=== PATIENT | male | born 1955 | race Caucasian/White ===

== ENCOUNTER 2021-11-28 10:56 | Outpatient (RCR) | payer OTHER | END 2021-12-02 | disposition home or self-care (01) | LOC: ONC 10:56 | PROVIDERS: ATTEND Internal Medicine Hematology & Oncology | DX: C64.9 Malignant neoplasm of unspecified kidney, except renal pelvis (principal); C67.9 Malignant neoplasm of bladder, unspecified | CPT/HCPCS: 99204 ==

== ENCOUNTER 2021-12-26 18:29 | Inpatient (IN) | payer OTHER ==
[~2021-12-26] VITALS: Ht 177.8 cm; Wt 66.7 kg
--- NOTE | 2021-12-26 19:23 | ED Abdominal Pain ---
General Chief Complaint: Abdominal/GI Problems Stated Complaint: ABD PAIN,N/V Source of Information: Patient Exam Limitations: No Limitations (GUSTAVO FRANZ APRN) History of Present Illness Date Seen by Provider: Dec 26, 2021 Time Seen by Provider: 19:23 Initial Comments This is a 66 yo male with history of bladder cancer with metastasis to left kidney. Was previously treated with [facility] in [place] but moved to area to be closer to family. States he was diagnosed with bladder cancer in [id number] and had subsequent urinary diversion. Was found to have metastasis to his left kidney which resulted in left nephrectomy in June 2021. He is not currently on chemotherapy. Has established with [facility] oncology center. Has not yet established with primary care provider. Today he reports having decreased urine output, chills, and progressively worsening abdominal pain. Pain is in his suprapubic and right lower abdomen. States pain radiates around his back bilaterally. Has had no prior complications with diversion. Reports only other past medical history of HTN and currently takes Amlodipine 10mg daily. (GUSTAVO FRANZ APRN) Allergies and Home Medications Allergies Coded Allergies: No Known Drug Allergies (Unverified , 12/26/21) Patient Home Medication List Home Medication List Reviewed: Yes (GUSTAVO FRANZ APRN) Review of Systems Review of Systems Constitutional: chills, fever (subjective ) EENTM: No Symptoms Reported Respiratory: No Symptoms Reported Cardiovascular: No Symptoms Reported Gastrointestinal: See HPI Genitourinary: See HPI Musculoskeletal: no symptoms reported Skin: no symptoms reported Psychiatric/Neurological: No Symptoms Reported Endocrine: No Symptoms Reported Hematologic/Lymphatic: No Symptoms Reported (GUSTAVO FRANZ APRN) Physical Exam Vital Signs Vital Signs - First Documented 12/26/21 19:15 Temp 36.9 Pulse 88 Resp 14 B/P (MAP) 144/73 (96) Pulse Ox 100 O2 Delivery Room Air (LILLIE LEON DO) Vital Signs Capillary Refill : (GUSTAVO FRANZ APRN) Height/Weight/BMI Height: '" Weight: lbs. oz. kg; BMI Method: General Appearance: WD/WN, no apparent distress HEENT: PERRL/EOMI, normal ENT inspection, pharynx normal Neck: full range of motion, supple, normal inspection Respiratory: lungs clear, normal breath sounds, no respiratory distress, no accessory muscle use Cardiovascular: regular rate, rhythm, no murmur Gastrointestinal: normal bowel sounds, soft, tenderness Extremities: normal range of motion, normal inspection Back: normal inspection, no CVA tenderness Male: No testicular tenderness Neurologic/Psychiatric: no motor/sensory deficits, alert, normal mood/affect, oriented x 3 Skin: normal color, warm/dry (GUSTAVO FRANZ APRN) Focused Exam Lactate Level 12/26/21 21:09: Lactic Acid Level 1.12 (LILLIE LEON DO) Lactic Acid Level Laboratory Tests Test 12/26/21 21:09 Lactic Acid Level 1.12 MMOL/L (0.50-2.00) (LILLIE LEON DO) Progress/Results/Core Measures Results/Orders Lab Results Laboratory Tests Test 12/26/21 19:27 12/26/21 21:09 Range/Units White Blood Count 18.2 H 4.3-11.0 10^3/uL Red Blood Count 4.26 L 4.30-5.52 10^6/uL Hemoglobin 15.0 13.3-17.7 g/dL Hematocrit 43 40-54 % Mean Corpuscular Volume 100 H 80-99 fL Mean Corpuscular Hemoglobin 35 H 25-34 pg Mean Corpuscular Hemoglobin Concent 35 32-36 g/dL Red Cell Distribution Width 12.0 10.0-14.5 % Platelet Count 180 130-400 10^3/uL Mean Platelet Volume 9.4 9.0-12.2 fL Immature Granulocyte % (Auto) 0 % Neutrophils (%) (Auto) 86 H 42-75 % Lymphocytes (%) (Auto) 3 L 12-44 % Monocytes (%) (Auto) 10 0-12 % Eosinophils (%) (Auto) 0 0-10 % Basophils (%) (Auto) 0 0-10 % Neutrophils # (Auto) 15.6 H 1.8-7.8 10^3/uL Lymphocytes # (Auto) 0.6 L 1.0-4.0 10^3/uL Monocytes # (Auto) 1.9 H 0.0-1.0 10^3/uL Eosinophils # (Auto) 0.0 0.0-0.3 10^3/uL Basophils # (Auto) 0.0 0.0-0.1 10^3/uL Immature Granulocyte # (Auto) 0.1 0.0-0.1 10^3/uL Neutrophils % (Manual) 88 % Lymphocytes % (Manual) 3 % Monocytes % (Manual) 7 % Band Neutrophils 2 % Anisocytosis SLIGHT Sodium Level 136 135-145 MMOL/L Potassium Level 4.7 3.6-5.0 MMOL/L Chloride Level 104 98-107 MMOL/L Carbon Dioxide Level 17 L 21-32 MMOL/L Anion Gap 15 H 5-14 MMOL/L Blood Urea Nitrogen 22 H 7-18 MG/DL Creatinine 1.79 H 0.60-1.30 MG/DL Estimat Glomerular Filtration Rate 42 BUN/Creatinine Ratio 12 Glucose Level 131 H 70-105 MG/DL Calcium Level 9.5 8.5-10.1 MG/DL Corrected Calcium 9.3 8.5-10.1 MG/DL Total Bilirubin 0.8 0.1-1.0 MG/DL Aspartate Amino Transf (AST/SGOT) 23 5-34 U/L Alanine Aminotransferase (ALT/SGPT) 18 0-55 U/L Alkaline Phosphatase 88 40-136 U/L Total Protein 7.1 6.4-8.2 GM/DL Albumin 4.3 3.2-4.5 GM/DL Procalcitonin 0.25 H <0.10 NG/ML Lactic Acid Level 1.12 0.50-2.00 MMOL/L (LILLIE LEON DO) Medications Given in ED Current Medications Medications Dose Ordered Sig/Alistair Route Start Time Stop Time Status Last Admin Dose Admin Ceftriaxone Sodium/Dextrose 50 ml @ 100 mls/hr ONCE ONCE IV 12/26/21 21:00 12/26/21 21:29 DC 12/26/21 21:08 100 MLS/HR Fentanyl Citrate 50 mcg ONCE ONCE IVP 12/26/21 21:45 12/26/21 21:46 DC 12/26/21 22:04 50 MCG Piperacillin Sod/ Tazobactam Sod 4.5 gm/Sodium Chloride 100 ml @ 200 mls/hr ONCE ONCE IV 12/26/21 21:15 12/26/21 21:44 DC 12/26/21 22:04 200 MLS/HR Sodium Chloride 1,000 ml @ 999 mls/hr ONCE ONCE IV 12/26/21 20:45 12/26/21 21:45 DC 12/26/21 21:08 999 MLS/HR (LILLIE LEON DO) Vital Signs/I&O 12/26/21 19:15 Temp 36.9 Pulse 88 Resp 14 B/P (MAP) 144/73 (96) Pulse Ox 100 O2 Delivery Room Air (LILLIE LEON DO) Progress Progress Note : Progress Note Upon arrival VSS. Labs show elevated WBC-18, BUN 22, Creat-1.7, no baseline labs available. Lactic within normal limits. Procalcitonin-0.25. Imaging of abdomen shows s/p left nephrectomy, solitary right nephrectomy along with cystectomy and right lower quadrant ileal conduit. There is at least moderate severity obstruction of the right kidney with moderate perinephric and ureteric stranding, concerning for superimposed infectious process. Etiology of the obstruction is indeterminate. Labs and imaging reviewed with Dr. Hess. Patient had received Rocephin 1gm IV in ED. Recommended adding Zosyn 4.5GM IV and admit for IVF and antibiotics. Pain improved with Fentanyl 50mcg IVP. Plan of care reviewed with patient and daughter. They are agreeable with plan. Patient changed urostomy bag to collect urine sample. He was given 1 liter NS bolus to obtain UA, however has yet to make urine. Family updated regarding concerns for no urine output. Requested consult/transfer to [facility]. Called medical scraper hand for transfer. Provided history, labs, and imaging results. CT clouded for review. triage returned call and declined transfer due to capacity. Informed hospitalist recommends continuing with conservative treatment (IVF, antibiotics) and to return call in AM if decline in renal function and poor output. Plan of care reviewed with family. They are agreeable with plan. VSS for admit to medical unit. (GUSTAVO FRANZ APRN) Diagnostic Imaging Diagonstic Imaging: CT Plain Films/CT/US/NM/MRI: abdomen Comments [facility]. [place], [place] NAME: ALISSONMELANIE P [facility] REC#: [id number] PT STATUS: REG ER : 1955 PHYSICIAN: GUSTAVO FRANZ [employer] [employer] ADMIT DATE: 12/26/21/ER Signed Date of Exam:08/24/22 CT ABDOMEN/PELVIS WO PROCEDURE: CT abdomen and pelvis without contrast. TECHNIQUE: Multiple contiguous axial images were obtained through the abdomen and pelvis without the use of intravenous contrast. Auto Exposure Controls were utilized during the CT exam to meet ALARA standards for radiation dose reduction. INDICATION: 66-year-old male, stomach cramping since earlier in the day. Pain. Some nausea. CORRELATION STUDY: None. FINDINGS: LOWER THORAX: Clear. LIVER: Unremarkable on unenhanced imaging. GALLBLADDER: Present and unremarkable. No bile duct dilatation. SPLEEN: Unremarkable. PANCREAS: Unremarkable. ADRENAL GLANDS: Not well visualized, may be slightly hypertrophied otherwise grossly unremarkable. KIDNEYS: Left nephrectomy, solitary right kidney. Right kidney is engorged with moderate amount of perinephric stranding. There is at least moderate severity hydronephrosis. The right ureter cannot be completely traced but terminates at a right lower quadrant ileal conduit which is somewhat distended. ABDOMINAL AORTA: Moderate aortoiliac wall calcification, nonaneurysmal. GASTROINTESTINAL TRACT: Stomach appears to be with diffuse gastric wall thickening. A few fluid and gas-filled loops of small bowel without definitive features to suggest obstruction. Colonic diverticulosis. No definitive obstruction or inflammation, however overall assessment of particularly the gastrointestinal tract is limited. URINARY BLADDER: Postoperative cystectomy with a right lower quadrant ileal conduit. REPRODUCTIVE: Prostate gland appears absent. OSSEOUS STRUCTURES: Moderate multilevel degenerative change, most severe with narrowing and sclerotic changes at L2-L3. OTHER: None. IMPRESSION: 1. Limitations of noncontrast imaging. 2. Post left nephrectomy, solitary right nephrectomy along with cystectomy and right lower quadrant ileal conduit. There is at least moderate severity obstruction of the right kidney with moderate perinephric and ureteric stranding, concerning for superimposed infectious process. Etiology of the obstruction is indeterminate. 3. Suggested abnormal gastric wall thickening. Component of gastritis is not excluded and suspected. Imaging of gastrointestinal tract is somewhat limited overall assessment without definitive evidence for obstruction. Dictated by: Dictated on workstation # [id number] Dict: 12/26/212033 Trans: 12/26/212237 [facility] [id number] Interpreted by: MORAIMA ALEMAN DO Electronically signed by: MORAIMA ALEMAN DO 12/26/212237 Reviewed: Reviewed by Me (GUSTAVO FRANZ APRN) Departure Communication (Admissions) Time/Spoke to Admitting Phy: 21:10 Dr. Hess (GUSTAVO FRANZ APRN) Impression Primary Impression: Acute pyelonephritis Additional Impressions: Complication of Ileal conduit Hydronephrosis of right kidney Disposition: ADMITTED INPATIENT Condition: Stable Admissions Decision to Admit Reason: Admit from ER (General) Decision to Admit/Date: Dec 26, 2021 Time/Decision to Admit Time: 21:33 (GUSTAVO FRANZ APRN) Departure-Patient Inst. Referrals: NO,LOCAL PHYSICIAN (PCP/Family) Primary Care Physician ATTENDING PHYSICIAN NOTE: I WAS PHYSICALLY PRESENT ER PHYSICIAN, BUT I WAS NOT INVOLVED IN ANY DECISION MAKING OR ANY CARE OF THIS PATIENT, AND I AM NOT COLLABORATING PHYSICIAN. (LILLIE LEON DO) GUSTAVO FRANZ APRN Dec 26, 2021 19:23 LILLIE LEON DO Dec 27, 2021 05:35
[2021-12-26 19:29] LABS: MEAN PLATELET VOLUME 9.4 fL (9.0-12.2)
[2021-12-26 19:31] LABS: BASOPHILS % (AUTO) 0 % (0-10); EOSINOPHILS % (AUTO) 0 % (0-10); HEMATOCRIT 43 % (40-54); LYMPHOCYTES # (AUTO) 0.6 10^3/uL (1.0-4.0); LYMPHOCYTES % (AUTO) 3 % (12-44); MEAN CORPUSCULAR HEMOGLOBIN 35 pg (25-34); MEAN CORPUSCULAR HGB CONC 35 g/dL (32-36); MEAN CORPUSCULAR VOLUME 100 fL (80-99); MONOCYTES # (AUTO) 1.9 10^3/uL (0.0-1.0); MONOCYTES % (AUTO) 10 % (0-12); NEUTROPHILS # (AUTO) 15.6 10^3/uL (1.8-7.8); NEUTROPHILS % (AUTO) 86 % (42-75); PLATELET COUNT 180 10^3/uL (130-400); WHITE BLOOD COUNT 18.2 10^3/uL (4.3-11.0)
[2021-12-26 19:50] LABS: ALBUMIN 4.3 GM/DL (3.2-4.5); POTASSIUM 4.7 MMOL/L (3.6-5.0)
[2021-12-26 19:51] LABS: BAND NEUTROPHILS 2 %; LYMPHOCYTES % (MANUAL) 3 %; MONOCYTES % (MANUAL) 7 %; NEUTROPHILS % (MANUAL) 88 %
[2021-12-26 19:52] LABS: ANISOCYTOSIS SLIGHT; CALCIUM 9.5 MG/DL (8.5-10.1)
[2021-12-26 19:53] LABS: TOTAL PROTEIN 7.1 GM/DL (6.4-8.2)
[2021-12-26 19:55] LABS: BILIRUBIN,TOTAL 0.8 MG/DL (0.1-1.0)
[2021-12-26 19:56] LABS: CREATININE SERUM 1.79 MG/DL (0.60-1.30)
--- NOTE | 2021-12-26 20:44 | Diagnostic Imaging Report ---
PROCEDURE: CT abdomen and pelvis without contrast. TECHNIQUE: Multiple contiguous axial images were obtained through the abdomen and pelvis without the use of intravenous contrast. Auto Exposure Controls were utilized during the CT exam to meet ALARA standards for radiation dose reduction. INDICATION: 66-year-old male, stomach cramping since earlier in the day. Pain. Some nausea. CORRELATION STUDY: None. FINDINGS: LOWER THORAX: Clear. LIVER: Unremarkable on unenhanced imaging. GALLBLADDER: Present and unremarkable. No bile duct dilatation. SPLEEN: Unremarkable. PANCREAS: Unremarkable. ADRENAL GLANDS: Not well visualized, may be slightly hypertrophied otherwise grossly unremarkable. KIDNEYS: Left nephrectomy, solitary right kidney. Right kidney is engorged with moderate amount of perinephric stranding. There is at least moderate severity hydronephrosis. The right ureter cannot be completely traced but terminates at a right lower quadrant ileal conduit which is somewhat distended. ABDOMINAL AORTA: Moderate aortoiliac wall calcification, nonaneurysmal. GASTROINTESTINAL TRACT: Stomach appears to be with diffuse gastric wall thickening. A few fluid and gas-filled loops of small bowel without definitive features to suggest obstruction. Colonic diverticulosis. No definitive obstruction or inflammation, however overall assessment of particularly the gastrointestinal tract is limited. URINARY BLADDER: Postoperative cystectomy with a right lower quadrant ileal conduit. REPRODUCTIVE: Prostate gland appears absent. OSSEOUS STRUCTURES: Moderate multilevel degenerative change, most severe with narrowing and sclerotic changes at L2-L3. OTHER: None. IMPRESSION: 1. Limitations of noncontrast imaging. 2. Post left nephrectomy, solitary right nephrectomy along with cystectomy and right lower quadrant ileal conduit. There is at least moderate severity obstruction of the right kidney with moderate perinephric and ureteric stranding, concerning for superimposed infectious process. Etiology of the obstruction is indeterminate. 3. Suggested abnormal gastric wall thickening. Component of gastritis is not excluded and suspected. Imaging of gastrointestinal tract is somewhat limited overall assessment without definitive evidence for obstruction. Dictated by: Dictated on workstation # [id number]
[2021-12-26] MEDS ORDERED: NS IV 1000 ML 1,000 ML IV ONE (20:45)
[2021-12-26] MEDS ORDERED: cefTRIAXone 1 GM PRE-MIX 50 ML IV ONE (21:00)
[2021-12-26] MEDS ORDERED: NS IV 1000 ML 1,000 ML ONE (21:07)
[2021-12-26] MEDS ORDERED: PIPERACILLIN SODIUM/TAZOBACTAM 4.5 GM in NS (IVPB) 100 ML IV ONE (21:15)
[2021-12-26] MEDS ORDERED: fentaNYL INJ 100 MCG/2 ML AMP IVP ONE ×3 (21:15→23:30)
[2021-12-26 23:44] VITALS: BP 138/75
[2021-12-27] MEDS ORDERED: NS IV 1000 ML 1,000 ML ONE (00:06)
[2021-12-27 00:21] VITALS: BP 144/73
[2021-12-27] MEDS: NS IV 1000 ML 1,000 ML IV SCH ×2 (00:27→14:48)
[2021-12-27] MEDS ORDERED: RT-ALBUTEROL SULF 2.5 MG/3 ML PRE-MIX VIAL INH PRN (00:30)
[2021-12-27] MEDS ORDERED: ACETAMINOPHEN 500 MG TAB (TYLENOL) PO PRN (00:30)
[2021-12-27] MEDS ORDERED: ONDANSETRON 4 MG/2 ML (SDV) Z0FRAN IV PRN (00:30)
[2021-12-27] MEDS: PIPERACILLIN SODIUM/TAZOBACTAM 4.5 GM in NS (IVPB) 100 ML IV SCH ×2 (03:42→10:57)
[2021-12-27] MEDS: fentaNYL INJ 100 MCG/2 ML AMP IV PRN ×5 (03:42→14:30)
[2021-12-27 04:11] VITALS: BP 126/74
[2021-12-27 06:06] LABS: BASOPHILS % (AUTO) 0 % (0-10); EOSINOPHILS % (AUTO) 0 % (0-10); HEMATOCRIT 39 % (40-54); HEMOGLOBIN 14.1 g/dL (13.3-17.7); LYMPHOCYTES # (AUTO) 0.9 10^3/uL (1.0-4.0); LYMPHOCYTES % (AUTO) 4 % (12-44); MEAN CORPUSCULAR HEMOGLOBIN 36 pg (25-34); MEAN CORPUSCULAR HGB CONC 36 g/dL (32-36); MEAN CORPUSCULAR VOLUME 99 fL (80-99); MEAN PLATELET VOLUME 9.9 fL (9.0-12.2); MONOCYTES # (AUTO) 1.5 10^3/uL (0.0-1.0); MONOCYTES % (AUTO) 7 % (0-12); NEUTROPHILS # (AUTO) 18.3 10^3/uL (1.8-7.8); NEUTROPHILS % (AUTO) 87 % (42-75); PLATELET COUNT 131 10^3/uL (130-400); WHITE BLOOD COUNT 20.9 10^3/uL (4.3-11.0)
[2021-12-27 06:20] LABS: CALCIUM 8.5 MG/DL (8.5-10.1)
[2021-12-27 06:25] LABS: CREATININE SERUM 2.59 MG/DL (0.60-1.30)
[2021-12-27 08:07] VITALS: BP 130/63
[2021-12-27] MEDS ORDERED: FAMOTIDINE 20 MG (PEPCID) TABLET PO SCH (09:00)
--- NOTE | 2021-12-27 09:07 | Short Stay Summary-Hospitalist ---
History of Present Illness HPI/Chief Complaint Patient is a 66-year-old male with past medical history of metastatic bladder cancer status post cystectomy and nephrectomy with urinary diversion who presented to the emergency department due to abdominal pain. He had his nephrectomy in June 2019 and was on chemotherapy until August but did not tolerate this so is currently not on any chemotherapy. He reports decreased urine output and fevers and chills. He was found to have a leukocytosis on work-up in the emergency room and imaging of his abdomen revealed moderate severity obstruction of the right kidney with perinephric stranding and hydronephrosis. They attempted transfer to but [facility] was at capacity so he was admitted here for IV antibiotics. I discussed his case with our urologist Dr. Solorio who recommends transfer for intervention. I have discussed this with patient and his daughters at bedside and will continue to attempt transfer today. Source: patient Date Seen 12/27/21 Time Seen by a Provider: 09:02 Attending Physician No,Local Physician PCP Admitting Physician: Matt Hess MD Attending Physician: Matt Hess MD Referring Physician Date of Admission Dec 26, 2021 at 22:18 Home Medications & Allergies Home Medications Reviewed patient Home Medication Reconciliation performed by pharmacy medication reconciliations health information systems technician and/or nursing. Patients Allergies have been reviewed. Allergies Allergies Coded Allergies No Known Drug Allergies (Unverified12/26/21) Past Pxoqeix-Koznoj-Zjpgwd Hx Patient Social History Tobacco Use?: Yes Tobacco type used: Cigarettes Smoking Status: Current Everyday Smoker Smokeless Tobacco Frequency: Never a User Use of E-Cig and/or Vaping dev: No Substance use?: No Alcohol Use?: Yes Alcohol type: Beer, Hard Liquor Alcohol Frequency: Couple times a week Pt feels they are or have been: No Immunizations Up To Date Second COVID19 Vaccination Be: UNKNOWN Tetanus Booster (TDap): Unknown Current Status Advance Directives: No Communicates: Verbally Primary Language: Israeli Preferred Spoken Language: Israeli Is interpretation needed?: No Sensory deficits: Hearing impairment Implanted or [employer] D: None Review of Systems Constitutional: chills, fever EENTM: no symptoms reported Respiratory: no symptoms reported Cardiovascular: no symptoms reported Gastrointestinal: abdominal pain Genitourinary: decreased output, hematuria Musculoskeletal: no symptoms reported Skin: no symptoms reported Psychiatric/Neurological: No Symptoms Reported Physical Exam Physical Exam Vital Signs Vital Signs - First Documented 12/26/21 12/27/21 19:15 00:21 Temp 36.9 Pulse 88 Resp 14 B/P (MAP) 144/73 (96) Pulse Ox 100 O2 Delivery Room Air FiO2 21 Capillary Refill : Less Than 3 Seconds Height, Weight, BMI Height: '" Weight: lbs. oz. kg; 21.09 BMI Method: General Appearance: No Apparent Distress, WD/WN, Thin HEENT: PERRL/EOMI, Moist Mucous Membranes Respiratory: Lungs Clear, No Accessory Muscle Use, No Respiratory Distress Cardiovascular: Regular Rate, Rhythm, No Murmur Gastrointestinal: Normal Bowel Sounds, Soft, Tenderness (upper left), Other (urostomy with scant output) Neurologic/Psychiatric: Alert, Oriented x3, Normal Mood/Affect Results Results/Procedures Labs Laboratory Tests 12/26/21 19:27 12/27/21 05:49 Patient resulted labs reviewed. Imaging: Reviewed Imaging Report Imaging [facility]. [place], [place] NAME: MELANIE [facility] REC#: [id number] PT STATUS: REG ER : 1955 PHYSICIAN: GUSTAVO FRANZ APRN ADMIT DATE: 12/26/21/ER Signed Date of Exam:12/26/21 CT ABDOMEN/PELVIS WO PROCEDURE: CT abdomen and pelvis without contrast. TECHNIQUE: Multiple contiguous axial images were obtained through the abdomen and pelvis without the use of intravenous contrast. Auto Exposure Controls were utilized during the CT exam to meet ALARA standards for radiation dose reduction. INDICATION: 66-year-old male, stomach cramping since earlier in the day. Pain. Some nausea. CORRELATION STUDY: None. FINDINGS: LOWER THORAX: Clear. LIVER: Unremarkable on unenhanced imaging. GALLBLADDER: Present and unremarkable. No bile duct dilatation. SPLEEN: Unremarkable. PANCREAS: Unremarkable. ADRENAL GLANDS: Not well visualized, may be slightly hypertrophied otherwise grossly unremarkable. KIDNEYS: Left nephrectomy, solitary right kidney. Right kidney is engorged with moderate amount of perinephric stranding. There is at least moderate severity hydronephrosis. The right ureter cannot be completely traced but terminates at a right lower quadrant ileal conduit which is somewhat distended. ABDOMINAL AORTA: Moderate aortoiliac wall calcification, nonaneurysmal. GASTROINTESTINAL TRACT: Stomach appears to be with diffuse gastric wall thickening. A few fluid and gas-filled loops of small bowel without definitive features to suggest obstruction. Colonic diverticulosis. No definitive obstruction or inflammation, however overall assessment of particularly the gastrointestinal tract is limited. URINARY BLADDER: Postoperative cystectomy with a right lower quadrant ileal conduit. REPRODUCTIVE: Prostate gland appears absent. OSSEOUS STRUCTURES: Moderate multilevel degenerative change, most severe with narrowing and sclerotic changes at L2-L3. OTHER: None. IMPRESSION: 1. Limitations of noncontrast imaging. 2. Post left nephrectomy, solitary right nephrectomy along with cystectomy and right lower quadrant ileal conduit. There is at least moderate severity obstruction of the right kidney with moderate perinephric and ureteric stranding, concerning for superimposed infectious process. Etiology of the obstruction is indeterminate. 3. Suggested abnormal gastric wall thickening. Component of gastritis is not excluded and suspected. Imaging of gastrointestinal tract is somewhat limited overall assessment without definitive evidence for obstruction. Dictated by: Dictated on workstation # [id number] Dict: 12/26/212033 Trans: 12/26/212237 [facility] [id number] Interpreted by: MORAIMA ALEMAN DO Electronically signed by: MORAIMA ALEMAN DO 12/26/212237 Short Stay Diagnosis Discharge Diagnosis-Short Stay Admission Diagnosis Sepsis Final Discharge Diagnosis Sepsis Conclusion Plan Patient was admitted with severe sepsis due to pyelonephritis complicated by ileal loop diversion with obstruction and previous nephrectomy and cystectomy. He has been treated with IV antibiotics. I have discussed his case with urology who recommends transfer for urological intervention or percutaneous nephrostomy. We do not have the ability here to perform procedures the patient needs and I momo ramos reached out to who is at capacity, [facility] who is at capacity, I am awaiting to hear back from [facility] in [place] along with [facility], [facility], and [facility] in [place]. He will be continued on IV antibiotics. I will await his cultures. At this time he has made little urine but he is not hyperkalemic nor is he going into pulmonary edema. He is stable on room air. We will continue to attempt transfer. Received call back from [facility] around 1230 and patient accepted in transfer by Dr. Hoffman. Diagnosis/Problems Diagnosis/Problems (1) Sepsis Qualifiers: (2) Severe sepsis (3) Hydronephrosis of right kidney Status: Acute (4) Acute pyelonephritis Status: Acute (5) Complication of Ileal conduit Status: Acute (6) Urinary tract infection, site not specified Status: Acute (7) Bladder cancer Qualifiers: Qualified Codes: C67.9 - Malignant neoplasm of bladder, unspecified (8) History of nephrectomy, left (9) Metastasis from bladder cancer FEI DAVENPORT MD Dec 27, 2021 09:07
--- NOTE | 2021-12-27 11:29 | CONSULTATION REPORT ---
DATE OF SERVICE: 12/27/2021 ATTENDING PHYSICIAN: Dr. Hinojosa. SUMMARY: After reviewing the patient's records, interviewing him and examining him, this is a 66-year-old white man known to me long time ago when I did his vasectomy. He moved to [place] around 2017. He was found to have cancer of the bladder, underwent a radical cystectomy with ileal loop conduit. Later on, he was found to have metastatic disease into the left kidney and underwent a nephrectomy. He was admitted through the emergency room with a question pyelonephritis, ureteral obstruction, acute renal failure with anuria, attempt to transfer the patient to a tertiary hospital, which was the most appropriate to do was decline by [facility] because of capacity. He was admitted here and started on antibiotic and IV fluid. He has not put much through the conduit. I reviewed his CT, it is hard to tell the distal part of the ureter is obstructed or no, especially entering the loop for possible stricturing and the loop seems to be kind of little distended, but the bag is empty and there is some stranding in the kidney, but I do not think the infections causing obstruction, I believe the obstruction is causing the infection. We have to determine if it is a distal obstruction or proximal obstruction. IMPRESSION: Right ureteral obstruction with a single kidney with history of cancer of the bladder post-loop and diversion with metastatic disease to the left kidney, post-nephrectomy. PLAN: Ideally, the patient should be transferred to a tertiary center to deal with the issue and possibility of trying to put a stent through the loop, which we are unable to do here. The second option will be to at least rule out distal obstruction by having the nurse to put a catheter in through the stoma and see if there is no blockage and how much he gets, third option is to do a loopogram which possibly can be done here and see if there is reflux into the ureter or no unless the patient had an antireflux procedure at the time of conduit surgery and the last option would be to put a percutaneous nephrostomy again this is not done in our institution, but can be done in one of the hospital in [place] or transfer the patient to [facility] or [facility]. [facility] again declined the transfer secondary to capacity. All this was fully explained to the patient and two of his daughters and discussed with Dr. Hinojosa. CC: Dr. Ashish - requested, unable to deliver. Job ID: [id number] DocumentID: [id number] Dictated Date: 12/27/2021 09:57:55 Leadlighter Date: 12/27/2021 11:28:17 Dictated By: JEREL CARLIN MD
[2021-12-27 11:58] VITALS: BP 136/66
[2021-12-27] MEDS ORDERED: AMLO-251 PO (12:18)
[2021-12-27] MEDS ORDERED: MULT-1136 PO (12:18)
[2021-12-27 16:00] VITALS: BP 136/66
[2021-12-27] MEDS ORDERED: cefTRIAXone 1 GM IV (PRE-MIX) 50 ML IV SCH (21:00)
== END 2021-12-27 16:00 | disposition short-term general hospital (02) | DRG 698 ==
LOC: EDUNIT# 18:29 → ER 18:30 → 4TH 22:18
PROVIDERS: ADMIT Internal Medicine; ATTEND Internal Medicine
DX: T83.598A Infection and inflammatory reaction due to other prosthetic device, implant and graft in urinary system, initial encounter (principal); A41.9 Sepsis, unspecified organism; R65.20 Severe sepsis without septic shock; N10 Acute pyelonephritis; N13.6 Pyonephrosis; T83.198A Other mechanical complication of other urinary devices and implants, initial encounter; I10 Essential (primary) hypertension; F17.210 Nicotine dependence, cigarettes, uncomplicated; H91.90 Unspecified hearing loss, unspecified ear; Z20.822 Contact with and (suspected) exposure to COVID-19; Z90.5 Acquired absence of kidney; Z85.51 Personal history of malignant neoplasm of bladder; Z79.899 Other long term (current) drug therapy
CPT/HCPCS: 36415; 74176; 80048; 80053; 83605; 84145; 85007; 85025; 85027; 87040; 87077; 87186; 87636; 94760; 96361; 96374; 96375; 96376

== ENCOUNTER → 2022-01-08 | Outpatient (CLI) | payer SELFPAY ==
[~2022-01-08] MED LIST: AMLO-251 PO; MULT-1136 PO
[2022-01-08 10:47] LABS: HEMATOCRIT 35 % (40-54); HEMOGLOBIN 11.7 g/dL (13.3-17.7); MEAN CORPUSCULAR HEMOGLOBIN 34 pg (25-34); MEAN CORPUSCULAR HGB CONC 34 g/dL (32-36); MEAN CORPUSCULAR VOLUME 102 fL (80-99); PLATELET COUNT 466 10^3/uL (130-400)
[2022-01-08 11:00] LABS: ALBUMIN 3.6 GM/DL (3.2-4.5); POTASSIUM 4.2 MMOL/L (3.6-5.0)
[2022-01-08 11:01] LABS: CALCIUM 8.9 MG/DL (8.5-10.1)
[2022-01-08 11:03] LABS: TOTAL PROTEIN 6.4 GM/DL (6.4-8.2)
[2022-01-08 11:04] LABS: BILIRUBIN,TOTAL 0.3 MG/DL (0.1-1.0)
[2022-01-08 11:06] LABS: CREATININE SERUM 1.34 MG/DL (0.60-1.30)
--- NOTE | 2022-01-08 11:42 | Diagnostic Imaging Report ---
INDICATION: Recent postop. Left lower extremity pain and edema. COMPARISON: None TECHNIQUE: Duplex, wolff-scale and color-flow imaging of the left lower extremity venous system was performed. FINDINGS: The common femoral vein, superficial femoral vein, profunda femoris, and popliteal veins are normal. These vessels show normal compressibility, color flow, and doppler augmentation. The deep calf veins, although not very well seen, demonstrate no distinct intraluminal thrombus. IMPRESSION: Negative venous Doppler of the left lower extremity. Dictated by: Dictated on workstation # [id number]
== END ==
LOC: RAD 10:13
PROVIDERS: ATTEND Nurse Practitioner Community Health
DX: M79.605 Pain in left leg (principal); M79.89 Other specified soft tissue disorders; Z98.890 Other specified postprocedural states
CPT/HCPCS: 36415; 80053; 85027; 85379

== ENCOUNTER 2022-02-18 12:08 | Outpatient (RCR) | payer OTHER ==
[2022-02-18 12:22] LABS: BASOPHILS % (AUTO) 0 % (0-10); EOSINOPHILS # (AUTO) 0.2 10^3/uL (0.0-0.3); EOSINOPHILS % (AUTO) 2 % (0-10); HEMATOCRIT 36 % (40-54); HEMOGLOBIN 12.1 g/dL (13.3-17.7); LYMPHOCYTES # (AUTO) 1.9 10^3/uL (1.0-4.0); LYMPHOCYTES % (AUTO) 29 % (12-44); MEAN CORPUSCULAR HEMOGLOBIN 35 pg (25-34); MEAN CORPUSCULAR HGB CONC 34 g/dL (32-36); MEAN CORPUSCULAR VOLUME 102 fL (80-99); MEAN PLATELET VOLUME 9.4 fL (9.0-12.2); MONOCYTES % (AUTO) 15 % (0-12); NEUTROPHILS # (AUTO) 3.5 10^3/uL (1.8-7.8); NEUTROPHILS % (AUTO) 53 % (42-75); PLATELET COUNT 223 10^3/uL (130-400); WHITE BLOOD COUNT 6.7 10^3/uL (4.3-11.0)
[2022-02-18 12:40] LABS: ALBUMIN 4.1 GM/DL (3.2-4.5); BILIRUBIN,TOTAL 0.6 MG/DL (0.1-1.0); CALCIUM 9.1 MG/DL (8.5-10.1); CREATININE SERUM 1.2 MG/DL (0.60-1.30); POTASSIUM 4.6 MMOL/L (3.6-5.0); TOTAL PROTEIN 6.9 GM/DL (6.4-8.2)
== END 2022-03-04 | disposition home or self-care (01) ==
LOC: ONC 12:08
PROVIDERS: ATTEND Internal Medicine Hematology & Oncology
DX: C64.9 Malignant neoplasm of unspecified kidney, except renal pelvis (principal); C67.9 Malignant neoplasm of bladder, unspecified
CPT/HCPCS: 36415; 80053; 85025

== ENCOUNTER → 2022-02-18 | Outpatient (CLI) | payer SELFPAY ==
--- NOTE | 2022-02-18 17:55 | Diagnostic Imaging Report ---
PROCEDURE: MRI lumbar spine. TECHNIQUE: Multiplanar, multisequence MRI of the lumbar spine was performed without contrast. INDICATION: Sciatica, left leg. FINDINGS: There is moderate dextroscoliosis. Body height is well maintained. The marrow signal is normal throughout. There is desiccation of the discs throughout. There are fatty and edematous Modic endplate changes at L2-L3 with considerable loss of disc space height. L1-L2 shows mild disc bulge with mild facet and ligamentous hypertrophy without significant encroachment. L2-L3 shows desiccation of the disc with mild broad-based disc bulge and hypertrophic endplate changes as well as facet and ligamentous hypertrophy. This is causing xomrxnsz-ba-hdsiyd encroachment upon the left lateral recess and neural foramen. L3-L4 shows desiccation with mild loss of disc space height. Mild broad-based bulge with mild facet and ligamentous hypertrophy causing [id number]-jj-xwevumfh encroachment in the lateral recesses bilaterally. L4-L5: Mild desiccation of the disc with mild bulge. Moderate facet and ligamentous hypertrophy on the right causing moderate foraminal encroachment and lateral recess encroachment. L5-S1 shows desiccation with loss of disc space height. No evidence of disc herniation. No spinal stenosis. The conus medullaris and cauda equina are normal. IMPRESSION: Moderate scoliosis with degenerative disc disease with hypertrophic endplate changes and facet and ligamentous hypertrophy causing multilevel encroachment upon the lateral recesses and neural foramen. This is most severe at the L2-L3 level on the left. Dictated by: Dictated on workstation # [id number]
== END ==
LOC: RAD 13:15
PROVIDERS: ATTEND Pediatrics
DX: M47.816 Spondylosis without myelopathy or radiculopathy, lumbar region (principal); M51.36 Other intervertebral disc degeneration, lumbar region; M41.86 Other forms of scoliosis, lumbar region
CPT/HCPCS: 72148

== ENCOUNTER → 2022-06-13 | Outpatient (CLI) | payer MEDICARE ==
[2022-06-13 15:02] LABS: INR 1.5 (0.8-1.4); PROTHROMBIN TIME PATIENT 18.9 SEC (12.2-14.7)
== END ==
LOC: IHC 10:41
PROVIDERS: ATTEND Pediatrics
DX: Z51.81 Encounter for therapeutic drug level monitoring (principal)
CPT/HCPCS: 85610

== ENCOUNTER 2022-07-29 00:51 | Emergency (ER) | payer MEDICARE ==
[~2022-07-29] VITALS: Ht 177.8 cm; Wt 68.0 kg
[2022-07-29] MEDS ORDERED: ROCURONIUM 50 MG/5 ML (ZEMURON) VIAL IV ONE (00:53)
[2022-07-29] MEDS ORDERED: MIDAZOLAM 5 MG/5 ML (VERSED) VIAL IVP ONE (00:53)
[2022-07-29] MEDS ORDERED: SUCCINYLCHOLINE INJ 20 MG/1 ML 10 ML VIAL INJ ONE (00:53)
[2022-07-29] MEDS ORDERED: fentaNYL INJ 100 MCG/2 ML AMP IV ONE (00:53)
--- NOTE | 2022-07-29 01:14 | ED Fall/Injury ---
General Chief Complaint: Trauma-Non Activation Stated Complaint: FALL/LEFT SHOULDER PAIN Nursing Triage Note: brought in by [facility] c/o left shoulder pain/deformity after falling out of bed 07/27/22 Source: patient (LIMITED HISTORIAN. ) History of Present Illness Date Seen by Provider: Jul 29, 2022 Time Seen by Provider: 01:00 Initial Comments PT ARRIVES VIA EMS FROM HOME--NO IMMOBILIZATION PT STATES HE THINKS HE MUST HAVE FELL OUT OF BED OR SOMETHING SOMETIME LAST NIGHT HE STATES HE DOES NOT REALLY KNOW WHAT HAPPENED, OR WHEN/WHAT TIME STATES "I NEVER WOKE UP" STATES HE DOES NOT REMEMBER ANYTHING ABOUT IT, DOES NOT KNOW WHAT HAPPENED. HE DOES NOT KNOW WHEN HE WOKE UP, OR WHERE HE WAS WHEN HE WOKE UP, OR GETTING UP, OR ANYTHING AT ALL ABOUT WHAT HAPPENED. HE HAS NO RECOLLECTION OF ANY EVENTS FROM FRIDAY NIGHT, UNTIL TODAY/FRIDAY--THIS AFTERNOON. PT C/O LEFT CLAVICLE PAIN HE STATES HE IS SHORT OF BREATH HE DENIES PAIN ANYWHERE ELSE EMS GAVE PT 100 MCG FENTANYL PT HAS BLADDER AND RENAL CANCER WITH UROSTOMY. HE HAS BEEN IN AND OUT OF THE LAST FEW MONTHS WITH PNEUMONIA/COVID, OTHER ISSUES PT HAS A VERY LOOSE COUGH WITH AUDIBLE RHONCHI. PT STATES HE DOES NOT NORMALLY HAVE A COUGH LIKE THIS "BUT I HAVE HAD IT A COUPLE OF TIMES BEFORE" DAUGHTER ARRIVES AND IS IN ROOM SHORTLY AFTER PT ARRIVES. SHE STATES THAT PT LIVES ALONE, AND SHE LAST SAW HIM ON FRIDAY AFTER NOON--LAST KNOWN WELL TIME. SHE CALLED HIM THIS EVENING TO CHECK ON HIM AND HE WAS COMPLAINING OF PAIN HE COULD NOT TELL HER WHAT HAPPENED AND TOLD HER THAT HE DID NOT REMEMBER ANYTHING, EITHER. SHE DOES NOT REPORT ANY MENTAL STATUS CHANGES. SHE STATES HE HAS BEEN IN AND OUT OF FOR THE LAST SEVERAL MONTHS WITH VARIOUS ISSUES HE HAD BEEN IN ASSISTED LIVING BETWEEN ADMITS TO , THEN HAS BEEN LIVING AT HOME BY HIMSELF FOR ALMOST A MONTH. HE HAD HOME HEALTH UNTIL 2 WEEKS AGO. HE HAD COVID IN MAY HE HAS HAD MULTIPLE BOUTS OF PNEUMONIA HE HAS CHRONIC RENAL FAILURE AND HAS HAD TO HAVE TEMPORARY DIALYSIS ON PRIOR HOSPITALIZATIONS HE HAS HISTORY OF ATRIAL FIBRILLATION AND IS ON COUMADIN HE HAD A STROKE A COUPLE OF MONTHS AGO, NO RESIDUAL EFFECTS. HE HAS BLADDER AND RENAL CANCER AND HAS HAD BLADDER REMOVED, LEFT NEPHRECTOMY AND HAS A RIGHT NEPHROSTOMY TUBE, WITH OSTOMY OPENING IN RIGHT LOWER ABDOMEN. Location Injury Occurred: home PCP: DR. POSADAS AT [facility] GOES TO FOR ALL HIS SPECIALTY CARE. Allergies and Home Medications Allergies Coded Allergies: No Known Drug Allergies (Unverified , 12/26/21) Patient Home Medication List Home Medication List Reviewed: Yes Amlodipine Besylate (Amlodipine Besylate) 10 Mg Tablet, 10 MG PO DAILY, (Reported) Entered as Reported by: JERRY VAZQUEZ on 12/27/21 1218 Multivitamin (Multivitamin) 1 Each Tablet, 1 EACH PO DAILY, (Reported) Entered as Reported by: JERRY VAZQUEZ on 12/27/21 1218 Review of Systems Review of Systems Constitutional: no symptoms reported Eyes: No Symptoms Reported Ears, Nose, Mouth, Throat: no symptoms reported Respiratory: see HPI, cough, short of breath Cardiovascular: no symptoms reported; No chest pain Gastrointestinal: no symptoms reported; No abdominal pain, No nausea, No vomiting Genitourinary: see HPI Musculoskeletal: see HPI Skin: no symptoms reported Psychiatric/Neurological: No Symptoms Reported; Denies Headache, Denies Numbness, Denies Paresthesia, Denies Tingling Past Pyquznp-Kjomnl-Jxlhoh Hx Patient Social History Tobacco Use?: Yes Tobacco type used: Cigarettes Smoking Status: Current Everyday Smoker Substance use?: No Alcohol Use?: Yes Alcohol type: Beer, Hard Liquor Alcohol Frequency: Couple times a week Pt feels they are or have been: No Immunizations Up To Date First/Initial COVID19 Vaccinat: UNKNOWN Second COVID19 Vaccination Be: UNKNOWN Third COVID19 Vaccination Date: UNKNOWN Past Medical History Surgery/Hospitalization HX: kidney sx, Left kidney removal, bladder ca, kidney ca, clots, htn Surgeries: Yes Bladder Surgery, Nephrectomy, Renal Respiratory: Yes (COVID IN MAY 2022) Pneumonia Cardiac: Yes Atrial Fibrillation, High Cholesterol, Hypertension Neurological: No Genitourinary: Yes (BLADDER AND RENAL CANCER) Gastrointestinal: No Musculoskeletal: No Endocrine: No Cancer: Yes Bladder, Kidney Did You Recieve Any Treatments: Yes What Type of Treatment Did You: Surgical Intervention Psychosocial: No Integumentary: No Blood Disorders: Yes (ANEMIA) Family Medical History SOCIAL HISTORY : -SMOKES 1 PPD -DRINKS ALCOHOL A COUPLE OF TIMES A WEEK--BEER + HARD LIQUOR -NO DRUG USE PAST SURGICAL HISTORY: -COMPLETE BLADDER REMOVAL, WITH ILEAL CONDUIT -LEFT NEPHRECTOMY -RIGHT NEPHROSTOMY TUBE TO ILEAL CONDUIT. Physical Exam Vital Signs Capillary Refill : Less Than 3 Seconds Height, Weight, BMI Height: '" Weight: lbs. oz. kg; 21.00 BMI Method: General Appearance: WD/WN, no apparent distress, thin (WITH LOOSE SKIN TO ABDOMEN. ), other (AUDIBLE AIRWAY NOISE / RHONCHI AND FREQUENT MOIST COUGH) HEENT: PERRL/EOMI, TMs normal, other (NO EXTERNAL EVIDENCE OF TRAUMA TO HEAD) Neck: non-tender Cardiovascular: regular rate, rhythm, no edema Respiratory: rhonchi (DIFFU), other (DIFFUSE LEFT CHEST TENDERNESS. NO CREPITANCE. NO SUB Q AIR. NO EXTERNAL EVIDENCE OF TRAUMA TO CHEST, BUT HAS OBVIOUS FRACTURE DEFORMITY TO LEFT MID CLAVICLE. NO OBVIOUS DYSPNEA OR TACHYPNEA) Gastrointestinal: non tender, soft, other (RIGHT NEPHROSTOMY TUBE) Back: other (DIFFUSE LEFT RIB TENDERNESS--ANTERIOR/LATERAL/POSTERIOR. NO SUB Q AIR NOTED. 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 ) Number of Attempts: 1 Tube Drainage: see nurses notes Post Procedure CXR?: Yes Reason for Intubation: HYPOXIA, ASPIRATION Intubation Method: orotracheal Tube Size: 7.5 Medications: Fentanyl, Propofol, Rocuronium, Succinylcholine, Versed Positive End Tide CO2: Yes Breath Sounds after Intubation: bilateral-equal Intubation Complications: no complications Post Intubation Xray: Yes Progress/Results/Core Measures Results/Orders Lab Results Laboratory Tests Test 07/29/22 00:52 07/29/22 00:56 07/29/22 03:28 Range/Units Lab Scanned Report Referred Lab Report [id number] White Blood Count 11.1 H 4.3-11.0 10^3/uL Red Blood Count 3.27 L 4.30-5.52 10^6/uL Hemoglobin 10.1 L 13.3-17.7 g/dL Hematocrit 31 L 40-54 % Mean Corpuscular Volume 93 80-99 fL Mean Corpuscular Hemoglobin 31 25-34 pg Mean Corpuscular Hemoglobin Concent 33 32-36 g/dL Red Cell Distribution Width 16.4 H 10.0-14.5 % Platelet Count 355 130-400 10^3/uL Mean Platelet Volume 9.0 9.0-12.2 fL Immature Granulocyte % (Auto) 0 % Neutrophils (%) (Auto) 70 42-75 % Lymphocytes (%) (Auto) 17 12-44 % Monocytes (%) (Auto) 13 H 0-12 % Eosinophils (%) (Auto) 0 0-10 % Basophils (%) (Auto) 0 0-10 % Neutrophils # (Auto) 7.8 1.8-7.8 10^3/uL Lymphocytes # (Auto) 1.8 1.0-4.0 10^3/uL Monocytes # (Auto) 1.4 H 0.0-1.0 10^3/uL Eosinophils # (Auto) 0.0 0.0-0.3 10^3/uL Basophils # (Auto) 0.0 0.0-0.1 10^3/uL Immature Granulocyte # (Auto) 0.1 0.0-0.1 10^3/uL Prothrombin Time 33.2 H 12.2-14.7 SEC INR Comment 3.2 H 0.8-1.4 Activated Partial Thromboplast Time 57 H 24-35 SEC Sodium Level 139 135-145 MMOL/L Potassium Level 4.6 3.6-5.0 MMOL/L Chloride Level 106 98-107 MMOL/L Carbon Dioxide Level 17 L 21-32 MMOL/L Anion Gap 16 H 5-14 MMOL/L Blood Urea Nitrogen 69 H 7-18 MG/DL Creatinine 2.80 H 0.60-1.30 MG/DL Estimat Glomerular Filtration Rate 24 BUN/Creatinine Ratio 25 Glucose Level 105 70-105 MG/DL Calcium Level 9.0 8.5-10.1 MG/DL Corrected Calcium 8.8 8.5-10.1 MG/DL Magnesium Level 2.5 H 1.6-2.4 MG/DL Total Bilirubin 0.3 0.1-1.0 MG/DL Aspartate Amino Transf (AST/SGOT) 15 5-34 U/L Alanine Aminotransferase (ALT/SGPT) 20 0-55 U/L Alkaline Phosphatase 126 40-136 U/L Total Protein 8.1 6.4-8.2 GM/DL Albumin 4.2 3.2-4.5 GM/DL Amylase Level 95 25-125 U/L Lipase 42 8-78 U/L Blood Gas Puncture Site L RAD Blood Gas Patient Temperature 36.2 Arterial Blood pH 7.28 *L 7.37-7.43 Arterial Blood Partial Pressure CO2 46 H 35-45 MMHG Arterial Blood Partial Pressure O2 66 L 79-93 MMHG Arterial Blood HCO3 21 L 23-27 MMOL/L Arterial Blood Total CO2 22.8 21.0-31.0 MMOL/L Arterial Blood Oxygen Saturation 93 L 94-100 % Arterial Blood Base Excess -4.4 L -2.5-2.5 MMOL/L Andrea Test YES-POS Blood Gas Ventilator Setting YES Blood Gas Inspired Oxygen 100% Micro Results Microbiology 07/29/22 Gram Stain - Final, Complete 07/29/22 Sputum Culture - Final, Complete Usual upper respiratory allan My Orders Orders - LILLIE LEON DO Chest 1 View, Ap/Pa Only (07/29/22 01:03) Clavicle, Left (07/29/22 01:03) Ed Iv/Invasive Line Start (07/29/22 01:07) O2 (07/29/22 01:07) Monitor-Rhythm Ecg Trace Only (07/29/22 01:07) Ct Head/Cervical Spine Wo (07/29/22 01:07) Ct Thoracic/Lumbar Spine Wo (07/29/22 01:07) Amylase (07/29/22 01:07) Cbc With Automated Diff (07/29/22 01:07) Comprehensive Metabolic Panel (07/29/22 01:07) Lipase (07/29/22 01:07) Magnesium (07/29/22 01:07) Protime With Inr (07/29/22 01:07) Partial Thromboplastin Time (07/29/22 01:07) Pelvis 1 To 2 Views (07/29/22 01:07) Ct Chest/Abdomen/Pelvis Wo (07/29/22 01:07) Fentanyl Inj (Sublimaze Injection) (07/29/22 01:45) Lidocaine 1% Inj 10 Ml (Xylocaine 1% Inj (07/29/22 01:45) Fentanyl Inj (Sublimaze Injection) (07/29/22 01:45) Lidocaine 1% Inj 10 Ml (Xylocaine 1% Inj (07/29/22 01:45) Chest 1 View, Ap/Pa Only (07/29/22 ) Chest 1 View, Ap/Pa Only (07/29/22 02:32) Ekg Tracing (07/29/22 02:36) Propofol Drip (Icu) (Diprivan Drip (Icu) (07/29/22 02:50) Chest 1 View, Ap/Pa Only (07/29/22 02:59) Phytonadione (Adult) Injection (Aquameph (07/29/22 03:15) Human Prothrombin Complx(Pcc) (Kcentra K (07/29/22 03:15) Cefepime Injection (Maxipime Injection) (07/29/22 03:15) Catheter(Urinary) Insert & Ass 03,15 (07/29/22 03:10) Ng Tube Insert & Assessment (07/29/22 03:10) Lidocaine 2% (Urojet) (Xylocaine Urojet) (07/29/22 03:15) Arterial Blood Gas (07/29/22 03:19) Accucheck Stat ONCE (07/29/22 03:27) Sputum Culture (07/29/22 03:32) Ed Iv/Invasive Line Start (07/29/22 03:52) Ns Iv 1000 Ml (Sodium Chloride 0.9%) (07/29/22 04:00) Fentanyl Inj (Sublimaze Injection) (07/29/22 00:53) Midazolam Injection (Versed Injection) (07/29/22 00:53) Rocuronium Injection (Zemuron Injection) (07/29/22 00:53) Succinylcholine Injection (Quelicin Inje (07/29/22 00:53) Iv Infusion <= First Hr Ed (07/29/22 ) Medications Given in ED Vital Signs/I&O Blood Pressure Mean: 99 Progress Progress Note : Progress Note ON ARRIVAL, PT'S VITALS ARE STABLE, PT IS NOT DYSPNEIC OR HYPOXIC OR TACHYPNEIC OR TACHYCARDIC. ON REVIEWING PT'S CHEST/ABDOMEN/PELVIS CT SCAN IN THE XRAY DEPT, PT WAS FOUND TO HAVE A SIGNIFICANT LEFT TENSION PNEUMOTHORAX. VITALS ARE STABLE AT THIS TIME. 0130--CONTACTED DR. GRIFFITHS, HE ADVISES TO PLACE A THORAVENT TUBE. PREPARATIONS BEING MADE FOR CHEST TUBE PLACEMENT, RADIOGRAPHICAL IMAGING IS BEING COMPLETED. ALL IMAGES ARE BEING CLOUDED TO [facility]. CHEST TUBE PLACED WITHOUT DIFFICULTY, AND NO COMPLICATIONS PT TOLERATED VERY WELL. O2 SATS UP TO 100% ON O2 AT 2L/NC. PT STATES HE FEELS LIKE HE CAN BREATHE A LITTLE EASIER. ALSO NOTED ON CT OF CHEST, IS DEBRIS IN THE TRACHEA AND RIGHT LOWER BRONCHUS--REFLECTING ASPIRATION, WITH LIKELY PNEUMONIA IN RLL PT'S O2 SATS BEGAN TO DROP INTO LOW 80'S. REPEAT CXR ORDERED, AND CHEST TUBE NOTED TO BE IN PROPER POSITION AND LEFT LUNG IS EXPANDED AND PNEUMOTHORAX IS SMALLER IN SIZE. PREPARATIONS THEN MADE TO INTUBATE THE PT. DISCUSSED WITH PT AND DAUGHTER PRIOR TO DOING THIS, AND PT IS AGREEABLE TO THIS, IS DAUGHTER. DAUGHTER STATES THAT HE IS A FULL CODE PT INTUBATED WITHOUT DIFFICULTY SECRETIONS SUCTIONED BY RT VIA ET TUBE. O2 SATS QUICKLY BACK UP TO 100% GIVEN CEFEPIME FOR ASPIRATION PNEUMONIA PT'S BP AND PULSE REMAINED STABLE THROUGHOUT --WITH PULSE IN 90'S, BP 150'S/70'S PRIOR TO INTUBATION NO ARRHYTHMIAS DURING ER STAY, AND PT REMAINED IN SINUS RHYTHM THROUGHOUT ER STAY NO CHANGE IN MENTATION AT ANY TIME. VITALS AT TIME OF TRANSFER: O2 SAT 100% ON VENTILATOR; HR 87, BP 108/62 AND 110/64 CRITICALLY ILL PATIENT, WITH CHEST TRAUMA, HEAD TRAUMA, WITH TENSION PNEUMOTHOR AX, INTRACRANIAL BLEED, MULTIPLE RIB FRACTURES, ASPIRATION PNEUMONIA CAUSING RESPIRATORY FAILURE VERY COMPLEX PT DUE TO THE ABOVE, WITH MULTIPLE CO-MORBIDITIES INCLUDING: -METASTATIC BLADDER AND RENAL CANCER, WITH REMOVAL OF BLADDER AND LEFT KIDNEY -CHRONIC RENAL FAILURE WITH HISTORY OF TEMPORARY DIALYSIS IN THE PAST -CHRONIC ATRIAL FIBRILLATION ON COUMADIN -HISTORY OF COVID INFECTION IN THE LAST 3 MONTHS, WITH MULTIPLE BOUTS OF PNEUMONIA IN THE LAST FEW MONTHS -ACTIVE SMOKER AND REGULAR ALCOHOL USE REVIEWED PRIOR RECORDS--PT HAD A SINGLE VISIT/ADMIT HERE 12/26/21-12/27/21 FOR PYELONEPHRITIS WITH RIGHT RENAL OBSTRUCTION AND TRANSFERRED TO HIGHER LEVEL OF CARE REVIEWED ER NOTES, ADMIT/SHORT STAY SUMMARY/CONSULT, TESTS IT IS NOTED AT THAT VISIT THAT PT RECENTLY MOVED TO THE AREA FROM [facility] TO BE CLOSER TO FAMILY DISCUSSED THE COMPLEXITY AND SERIOUSNESS OF PT'S CONDITION WITH DAUGHTER, AND ADVISED THEM PT MAY NOT SURVIVE THIS. SHE APPEARS TO UNDERSTAND Initial ECG Impression Date: Jul 29, 2022 Initial ECG Impression Time: 02:43 Initial ECG Rate: 92 Initial ECG Rhythm: Normal Sinus Initial ECG Intervals: Normal Initial ECG Impression: Nonspecific Changes Initial ECG Comparisson: No Previous ECG Available Comment INTERPRETED BY ME Diagnostic Imaging Comments ALL PENDING RADIOLOGIST REVIEW: CXR--LEFT CLAVICLE FRACTURE WITH PNEUMOTHORAX CXR -POST CHEST TUBE PLACEMENT--ADEQUATE PLACEMENT WITH DECREASE IN SIZE OF PN EUMOTHORAX CXR--POST INTUBATION--ADEQUATE POSITION OF ET TUBE CXR--CHF, CARDIOMEGALY, INFILTRATE RIGHT BASE, IMPROVING LEFT PNEUMOTHORAX CLEFT CLAVICLE--COMMINUTED FRACTURE, WITH PNEUMOTHORAX PELVIS XRAY--NO ACUTE PROCESS CT HEAD /CERVICAL SPINE--ALL PER [facility] RADIOLOGIST VIA PHONE AT 0237 -1.3 MM THICK RIGHT TEMPORAL EXTRA-AXIAL BLOOD COLLECTION--TOO SMALL TO DETERMINE IF SUBDURAL OR EPIDURAL -SMALL RIGHT TEMPORAL SUBARACHNOID HEMORRHAGE AND 11 M PARENCHYMAL CONTUSION -NO CERVICAL SPINE FRACTURE -COMMINUTED LEFT CLAVICULAR FRACTURE -LARGE LEFT PNEUMOTHORAX CT CHEST / ABDOMEN / PELVIS-- -4.5 CM ASCENDING AORTIC ANEURYSM -60% LEFT SIDED TENSION PNEUMOTHORAX WITH LLL COMPRESSIVE ATELECTASIS AND MEDIASTINAL SHIFT TO RIGHT -MULTIPLE LEFT RIB FRACTURES--RIBS 3-6, AND POSSIBLY OLD FX RIB 9 -DEBRIS IN TRACHEA AND RLL BRONCHUS INDICATING ASPIRATION -RLL CONSOLIDATION -ATELECTASIS OR PNUEMONIA -SMALL RIGHT PLEURAL EFFUSION -MULTIPLE POST OPERATIVE CHANGES WITHOUT EVIDENCE OF ACUTE TRAUMATIC INJURY IN ABDOMEN OR PELVIS -POSSIBLE LEFT ADRENAL ADENOMA CT THORACIC / LUMBAR SPINE-- -NO THORACIC VERTEBRAL FRACTURE -FRACTURES OF LEFT CLAVICLE, LEFT RIBS, AND LEFT TENSION PNEUMOTHORAX -STRANDY INFILTRATES IN LOWER LOBES -NO ACUTE LUMBAR FRACTURE -SCOLIOSIS OF LUMBAR SPINE WITH SPONDYLOSIS Reviewed: Reviewed by Me, Discussed w/Radiologist, Reviewed/Discussed Critical Care Note Critical Care Start Time: 01:00 Stop Time: 04:10 Total Time (minutes) 190 Progress SEE NURSING NOTES FOR DETAILS Departure Communication (Admissions) 0130--SPOKE WITH DR. GRIFFITHS, TRAUMA SURGEON, HE ADVISES TO PLACE THORAVENT TUBE IN LEFT CHEST. 0243--CALLED [facility], THEY WILL PAGE TRAUMA SURGEON AND CALL BACK. ER STAFF CONTACTING [facility] 0306--[facility] CALLED BACK, SPOKE WITH DR. SIDDIQUI, ACCEPTS PT FOR TRANSFER, AGREES WITH GIVING PT VIT K AND [facility]. 0311--HAVE BEEN INFORMED THAT [facility] WILL BE ARRIVING IN 39 MINUTES 0335--RECEIVED CALL FROM [facility], ETA 20 MINUTES 0410--[facility] HERE TO TRANSPORT PT Impression Primary Impression: UNWITNESSED FALL VS SYNCOPE Additional Impressions: Acute respiratory failure LEFT TENSION PNEUMOTHORAX Intracranial bleed Aspiration pneumonia CLOSED COMMINUTED LEFT CLAVICLE FRACTURE MULTIPLE LEFT RIB FRACTURES Chronic renal failure HX OF BLADDER CANCER WITH NEPHRECTOMY, BLADDER REMOVAL AND NEPHROSTOMY TUBE CHRONIC ATRIAL FIBRILLATION ONCOUMADIN Chronic anticoagulation UNWITNESSED INJURY Disposition: 02 XFER [facility]-TRM HOSP Condition: Stable Transfer Transfer Reason: Exceeds level of care (MULTISPECIALTY CARE UNAVAILABLE HERE I NCLUDING, NEUROLOGY/NEUROSURGERY, SPECIALTY TRAUMA SERVICES, INCLUDING THORACIC SURGERY, NEPHROLOGY AND DIALYSIS, PULMONOLOGY. ) Transfer Facility: [facility] Method of Transfer: Air Departure-Patient Inst. Referrals: NO,LOCAL PHYSICIAN (PCP/Family) Primary Care Physician LILLIE LEON DO Jul 29, 2022 01:14
[2022-07-29 01:15] LABS: BASOPHILS % (AUTO) 0 % (0-10); EOSINOPHILS % (AUTO) 0 % (0-10); HEMATOCRIT 31 % (40-54); HEMOGLOBIN 10.1 g/dL (13.3-17.7); LYMPHOCYTES # (AUTO) 1.8 10^3/uL (1.0-4.0); LYMPHOCYTES % (AUTO) 17 % (12-44); MEAN CORPUSCULAR HEMOGLOBIN 31 pg (25-34); MEAN CORPUSCULAR HGB CONC 33 g/dL (32-36); MEAN CORPUSCULAR VOLUME 93 fL (80-99); MONOCYTES # (AUTO) 1.4 10^3/uL (0.0-1.0); MONOCYTES % (AUTO) 13 % (0-12); NEUTROPHILS # (AUTO) 7.8 10^3/uL (1.8-7.8); NEUTROPHILS % (AUTO) 70 % (42-75); PLATELET COUNT 355 10^3/uL (130-400); WHITE BLOOD COUNT 11.1 10^3/uL (4.3-11.0)
[2022-07-29 01:21] LABS: ALBUMIN 4.2 GM/DL (3.2-4.5); INR 3.2 (0.8-1.4); POTASSIUM 4.6 MMOL/L (3.6-5.0); PROTHROMBIN TIME PATIENT 33.2 SEC (12.2-14.7)
[2022-07-29 01:23] LABS: TOTAL PROTEIN 8.1 GM/DL (6.4-8.2)
[2022-07-29 01:25] LABS: BILIRUBIN,TOTAL 0.3 MG/DL (0.1-1.0)
[2022-07-29 01:27] LABS: CREATININE SERUM 2.8 MG/DL (0.60-1.30)
[2022-07-29 01:30] LABS: MAGNESIUM 2.5 MG/DL (1.6-2.4)
[2022-07-29] MEDS ORDERED: LIDOCAINE 1% INJ 10 ML VIAL INJ ONE (01:45)
[2022-07-29] MEDS ORDERED: LIDOCAINE 1% INJ 10 ML VIAL ONE (01:45)
[2022-07-29] MEDS ORDERED: fentaNYL INJ 100 MCG/2 ML AMP IVP PRN (01:45)
[2022-07-29] MEDS ORDERED: fentaNYL INJ 100 MCG/2 ML AMP ONE (01:45)
[2022-07-29] MEDS ORDERED: PROPOFOL DRIP (ICU) 100 ML IV ONE (02:50)
[2022-07-29] MEDS ORDERED: CEFEPIME INJECTION 2,000 MG in NS (IVPB) 50 ML IV ONE (03:15)
[2022-07-29] MEDS ORDERED: HUMAN PROTHROMBIN COMPLX(PCC) 500 UNIT (KCENTRA) IV ONE (03:15)
[2022-07-29] MEDS ORDERED: PHYTONADIONE (ADULT) INJECTION 10 MG in NS (IVPB) 50 ML IV ONE (03:15)
[2022-07-29] MEDS ORDERED: LIDOCAINE UROJET 2% GEL 10 ML PKG TOP ONE (03:15)
[2022-07-29 03:54] VITALS: BP 90/54
[2022-07-29] MEDS ORDERED: NS IV 1000 ML 1,000 ML IV SCH (04:00)
[2022-07-29 04:02] LABS: ABG BASE EXCESS -4.4 MMOL/L (-2.5-2.5); ABG OXYGEN SATURATION 93 % (94-100); ABG PCO2 46 MMHG (35-45); ABG PO2 66 MMHG (79-93); ABG TCO2 22.8 MMOL/L (21.0-31.0); ALLENS TEST YES-POS; INSPIRED O2 100%; VENTILATOR YES
[2022-07-29 04:03] LABS: PATIENT TEMP 36.2
[2022-07-29 04:04] LABS: ABG PH 7.28 (7.37-7.43)
[2022-07-29 04:23] VITALS: BP 116/68
--- NOTE | 2022-07-29 06:54 | Diagnostic Imaging Report ---
INDICATION: Tube placement. FINDINGS: Comparison is made with prior exam of 07/29/2022. There is now an endotracheal tube in place which appears to be in satisfactory position. The left subclavian catheter is in the mid left subclavian. There is cardiomegaly. There is some right basilar atelectasis and/or pneumonitis. There is no pneumothorax. IMPRESSION: Interval placement of an endotracheal tube which is in satisfactory position. Cardiomegaly and some right basilar atelectasis and/or pneumonitis. The left subclavian central venous catheter is in the mid left subclavian. Dictated by: Dictated on workstation # [id number]
--- NOTE | 2022-07-29 07:16 | Diagnostic Imaging Report ---
INDICATION: Trauma. FINDINGS: There is cardiomegaly. There is mild venous congestion. There is moderate left pneumothorax. There is some right basilar atelectasis and/or pneumonitis. The mediastinum is unremarkable. IMPRESSION: Moderately large left pneumothorax. Cardiomegaly and some central pulmonary venous congestion. Right basilar subsegmental atelectasis and/or pneumonitis. Dictated by: Dictated on workstation # [id number]
--- NOTE | 2022-07-29 08:02 | Diagnostic Imaging Report ---
Indication: Trauma. FINDINGS: The bony pelvis appears to be intact. There are mild degenerative changes in lumbar spine. Proximal femurs are intact. The soft tissue structures are unremarkable. IMPRESSION: Degenerative changes however no acute fracture or dislocation. Dictated by: Dictated on workstation # [id number]
--- NOTE | 2022-07-29 08:18 | Diagnostic Imaging Report ---
PROCEDURE: CT head and CT cervical spine without contrast. TECHNIQUE: Multiple contiguous axial images were obtained through the brain and cervical spine without the use of intravenous contrast. Sagittal and coronal reformations through the cervical spine were then performed. Auto Exposure Controls were utilized during the CT exam to meet ALARA standards for radiation dose reduction. INDICATION: Fall with head and neck injury. No prior studies are available for comparison. CT HEAD: There is a shallow acute extra-axial hemorrhage along the right temporal convexity approximately 3 mm in thickness. There is a small intraparenchymal contusion as well in the right temporal lobe approximately 9 mm in size. There may be some associated minimal acute subarachnoid hemorrhage along the right temporal convexity. There is no midline shift. No sulcal effacement is seen. Cisterns are patent. No depressed calvarial fracture seen. Visualized paranasal sinuses are clear apart from moderate amount of fluid in the sphenoid sinus. IMPRESSION: Acute extra-axial hemorrhage along the right temporal convexity 3 mm in thickness with minimal acute subarachnoid hemorrhage and small intraparenchymal hematoma. No midline shift is identified. No other significant abnormality is identified. CT CERVICAL SPINE: Curvature and alignment of the cervical spine is normal. There is multilevel degenerative disc disease with variable disc space narrowing and marginal spurring, greatest at C4-C5, C5-C6 and C6-C7 levels. No cervical spine fracture seen. The prevertebral tissues are within normal limits. Odontoid is intact. Note is made of a comminuted left clavicle fracture. There is also a moderate-sized left apical pneumothorax. IMPRESSION: 1. Cervical spondylosis. No acute cervical spine fractures identified. 2. Left clavicle fracture. 3. Left-Sided pneumothorax. Dictated by: Dictated on workstation # [id number]
--- NOTE | 2022-07-29 09:01 | Diagnostic Imaging Report ---
Indication: Trauma. Comparison is made with prior exam of 07/29/2022 Findings: There is cardiomegaly. There is patchy right basal infiltrate. There is minimal discoid atelectasis in left lung base. There is no pleural effusion or pneumothorax. The mediastinum is unremarkable. Left subclavian central venous catheter has its tip in innominate vein. IMPRESSION: Cardiomegaly with a right basal infiltrate and some discoid atelectasis in the left lung base. Dictated by: Dictated on workstation # [id number]
--- NOTE | 2022-07-29 09:03 | Diagnostic Imaging Report ---
INDICATION: Pneumothorax. Comparison is made with prior exam of 07/29/2022 FINDINGS: There is cardiomegaly. There is a persistent moderate left pneumothorax. Left chest tube is in place. Some right basilar atelectasis and/or pneumonitis. Mediastinum is unremarkable. IMPRESSION: Persistent moderate left pneumothorax with some right basilar subsegmental atelectasis and/or pneumonitis. Dictated by: Dictated on workstation # [id number]
--- NOTE | 2022-07-29 09:10 | Diagnostic Imaging Report ---
Clinical indications: Patient fell out of bed on 07/27/2022. Patient complains of left clavicle pain and shortness of air. Patient has history of bladder and kidney cancer, left nephrectomy, and right nephrectomy tube. Exams: 1: CT scan of the chest, abdomen, and pelvis performed without contrast. Sagittal and coronal reformatted images are created. Auto Exposure Controls were utilized during the CT exam to meet ALARA standards for radiation dose reduction. 2: Axial CT scan of the thoracic and lumbar spine performed without IV contrast. Sagittal and coronal reformations were performed. Bone and soft tissue windows were created. Auto Exposure Controls were utilized during the CT exam to meet ALARA standards for radiation dose reduction. Comparison: None. Findings: CT chest, abdomen, and pelvis: There is a large left-sided pneumothorax roughly 60% with mild rightward deviation of the mediastinum. There is atelectasis with volume loss and consolidation involving the left lung with the left lower lobe affected the most. There is a small left pleural effusion. There is no right pneumothorax. There is minimal sized right pleural effusion. There is mild subsegmental consolidation volume loss involving the middle lobe and right lower lobe. There there are secretions/debris within the trachea and right left main stem bronchi. Given its appearance, aspiration pneumonitis involving both lower lobes cannot be completely excluded. Left thyroid lobe is absent which may be from postop changes. There is aneurysmal dilation of the ascending thoracic aorta measuring roughly 4.5 cm in AP dimensions. There is no lymphadenopathy involving the mediastinum, hilar regions or axillary regions. There is no mediastinal fluid collection or mass seen. There is a 14 mm rounded nodular lesion in the region of the left adrenal gland with Hounsfield units of 9 suspected to represent an adrenal adenoma. Otherwise, the liver, cysts spleen, pancreas, gallbladder, and adrenal glands show no significant abnormality. The left kidney is surgically absent. Percutaneous nephrostomy tube is seen within the right kidney. There is no evidence of right hydronephrosis. The bladder is surgically absent with right ureteral diversion and ileal conduit. Eason catheter is seen within the ileostomy site overlying the right anterior abdominal region. There is a small area of intra-abdominal fat containing hernia through the right anterior abdominal wall stoma region. There is no intra-abdominal free air or free fluid. There is no intestinal obstruction. There is nonspecific air-fluid levels involving nondilated small bowel. There is no lymphadenopathy. Prostate gland is not visualized and may be surgically absent. Hips, pelvis, and sacrum: There is a comminuted fracture involving the mid to lateral one third of the left clavicle. Old healed fracture involving the posterior aspect of left T9 rib. There is a nondisplaced acute fracture involving the posterior aspect of the left T5 rib and slightly displaced fracture involving the lateral anterior aspect of the left T3, T4, T5, and T6 ribs. The pelvis, hips and sacrum are intact with no fractures. There are degenerative spurs involving both hips CT thoracic and lumbar spine: There is no acute thoracic or lumbar fracture or dislocation. There is dextroscoliosis of the lumbar spine. There are hypertrophic spurs throughout the thoracic and lumbar spine and lower lumbar spine facet arthropathy. Impression: CT chest, abdomen, and pelvis: 1: There is a large left pneumothorax with mild left to right midline shift. 2: There is patchy consolidation involving both lung bases and middle lobe region which may be related to atelectasis. Superimposed aspiration pneumonitis cannot be completely excluded. There are secretions within the trachea and bronchi noted bilaterally. 3: There is a comminuted fracture involving the lateral mid to one third of the left clavicle. 4: There are acute fractures involving the anterior lateral aspect of the left T3, T4, T5, and T6 ribs and posterior aspect of the left T6 rib. There is old healed fracture involving the posterior aspect of left T9 rib. 5: There is no other acute traumatic finding involving the chest, abdomen, or pelvis. 6: Left adrenal gland adenoma. 7: There is an ascending thoracic aortic aneurysm measuring 4.[address] thoracic and lumbar spine: 1: There is no acute fracture dislocation involving the thoracic or lumbar spine. 2: There is no fracture of the pelvis, sacrum, or hips. I agree with [facility] report. Dictated by: Dictated on workstation # [id number]
--- NOTE | 2022-07-29 09:23 | Diagnostic Imaging Report ---
INDICATION: Fracture. FINDINGS: There is a comminuted fracture of the mid left clavicular diaphysis. The sternoclavicular joint and acromioclavicular joint appear to be intact. Left lung apex is clear. No other fracture or dislocation. IMPRESSION: Comminuted fractures mid left clavicle. Dictated by: Dictated on workstation # [id number]
== END 2022-07-29 04:27 | disposition short-term general hospital (02) ==
LOC: EDUNIT# 00:51 → ER 00:52
DX: S06.300A Unspecified focal traumatic brain injury without loss of consciousness, initial encounter (principal); S22.42XA Multiple fractures of ribs, left side, initial encounter for closed fracture; S42.002A Fracture of unspecified part of left clavicle, initial encounter for closed fracture; J96.00 Acute respiratory failure, unspecified whether with hypoxia or hypercapnia; J93.0 Spontaneous tension pneumothorax; J69.0 Pneumonitis due to inhalation of food and vomit; I12.9 Hypertensive chronic kidney disease with stage 1 through stage 4 chronic kidney disease, or unspecified chronic kidney disease; N18.9 Chronic kidney disease, unspecified; I48.20 Chronic atrial fibrillation, unspecified; T83.022A Displacement of nephrostomy catheter, initial encounter; F17.210 Nicotine dependence, cigarettes, uncomplicated; Z85.51 Personal history of malignant neoplasm of bladder; Z86.16 Personal history of COVID-19; Z79.01 Long term (current) use of anticoagulants; W06.XXXA Fall from bed, initial encounter
CPT/HCPCS: 31500; 32551; 36415; 70450; 71045; 71250; 72125; 72128; 72131; 72170; 73000; 74176; 80053; 82150; 82805; 83690; 83735; 85025; 85610; 85730; 87070; 87205; 93005; 93041; 94002; 94799; 96361; 96365; 96367; 96375; 99291

== ENCOUNTER 2022-08-13 10:06 | Emergency (ER) | payer MEDICARE ==
[~2022-08-13] VITALS: Ht 176 cm; Wt 66.0 kg
--- NOTE | 2022-08-13 10:22 | ED Abdominal Pain ---
General Chief Complaint: Abdominal/GI Problems Stated Complaint: PAIN Source of Information: Patient, EMS Exam Limitations: No Limitations History of Present Illness Date Seen by Provider: Aug 13, 2022 Time Seen by Provider: 10:10 Initial Comments 67yoM with PMH of bladder ca with urostomy, and HTN coming in for abdominal pain that started last night. The pain is all over, constant, moderate. Had fever at that time for which his nurse gave him tylenol which helped. Normal stool in his colostomy. Urine normal color for him. Allergies and Home Medications Allergies Coded Allergies: No Known Drug Allergies (Unverified , 12/26/21) Patient Home Medication List Home Medication List Reviewed: Yes Amlodipine Besylate (Amlodipine Besylate) 10 Mg Tablet, 10 MG PO DAILY, (Reported) Entered as Reported by: JERRY VAZQUEZ on 12/27/21 1218 Multivitamin (Multivitamin) 1 Each Tablet, 1 EACH PO DAILY, (Reported) Entered as Reported by: JERRY VAZQUEZ on 12/27/21 1218 Review of Systems Review of Systems Constitutional: fever EENTM: No Symptoms Reported Respiratory: No Symptoms Reported Cardiovascular: No Symptoms Reported Gastrointestinal: See HPI Genitourinary: No Symptoms Reported Musculoskeletal: no symptoms reported Skin: no symptoms reported Psychiatric/Neurological: No Symptoms Reported Endocrine: No Symptoms Reported Past Xwjjmss-Zbjskl-Atscis Hx Patient Social History Substance use?: No Immunizations Up To Date First/Initial COVID19 Vaccinat: UNKNOWN Second COVID19 Vaccination Be: UNKNOWN Third COVID19 Vaccination Date: UNKNOWN Past Medical History Surgery/Hospitalization HX: kidney sx, Left kidney removal, bladder ca, kidney ca, clots, htn Surgeries: Yes Bladder Surgery, Nephrectomy, Renal Respiratory: Yes (COVID IN MAY 2022) Pneumonia Cardiac: Yes Atrial Fibrillation, High Cholesterol, Hypertension Neurological: No Genitourinary: Yes (BLADDER AND RENAL CANCER) Gastrointestinal: No Musculoskeletal: No Endocrine: No Cancer: Yes Bladder, Kidney Did You Recieve Any Treatments: Yes What Type of Treatment Did You: Surgical Intervention Psychosocial: No Integumentary: No Blood Disorders: Yes (ANEMIA) Family Medical History SOCIAL HISTORY : -SMOKES 1 PPD -DRINKS ALCOHOL A COUPLE OF TIMES A WEEK--BEER + HARD LIQUOR -NO DRUG USE PAST SURGICAL HISTORY: -COMPLETE BLADDER REMOVAL, WITH ILEAL CONDUIT -LEFT NEPHRECTOMY -RIGHT NEPHROSTOMY TUBE TO ILEAL CONDUIT. Physical Exam Vital Signs Vital Signs - First Documented 08/13/22 10:12 Temp 38.0 Pulse 110 Resp 26 B/P (MAP) 105/50 (68) Pulse Ox 98 O2 Delivery Nasal Cannula O2 Flow Rate 2.00 Capillary Refill : Height/Weight/BMI Height: '" Weight: lbs. oz. kg; 21.00 BMI Method: General Appearance: WD/WN, no apparent distress HEENT: PERRL/EOMI, normal ENT inspection, pharynx normal Neck: non-tender, full range of motion, supple, normal inspection Respiratory: chest non-tender, lungs clear, normal breath sounds, no respiratory distress, no accessory muscle use Cardiovascular: regular rate, rhythm, no edema, no murmur Gastrointestinal: normal bowel sounds, soft; No distended, No guarding, No rebound; tenderness Extremities: normal range of motion, non-tender, normal inspection, no pedal edema, no calf tenderness, normal capillary refill Back: normal inspection, no CVA tenderness Neurologic/Psychiatric: no motor/sensory deficits, alert, normal mood/affect Skin: normal color, warm/dry Focused Exam Lactate Level 08/13/22 10:35: Lactic Acid Level 5.76*H 08/13/22 12:40: Lactic Acid Level 2.24*H Lactic Acid Level Laboratory Tests Test 08/13/22 10:35 08/13/22 12:40 Lactic Acid Level 5.76 MMOL/L (0.50-2.00) *H 2.24 MMOL/L (0.50-2.00) *H Procedures/Interventions Date of ETT Placement: Jul 29, 2022 Time of ETT Placement: 224 Progress/Results/Core Measures Results/Orders Lab Results Laboratory Tests Test 08/13/22 10:35 08/13/22 11:10 08/13/22 11:50 08/13/22 12:40 Range/Units White Blood Count 9.6 4.3-11.0 10^3/uL Red Blood Count 3.21 L 4.30-5.52 10^6/uL Hemoglobin 9.8 L 13.3-17.7 g/dL Hematocrit 30 L 40-54 % Mean Corpuscular Volume 92 80-99 fL Mean Corpuscular Hemoglobin 31 25-34 pg Mean Corpuscular Hemoglobin Concent 33 32-36 g/dL Red Cell Distribution Width 15.7 H 10.0-14.5 % Platelet Count 316 130-400 10^3/uL Mean Platelet Volume 9.2 9.0-12.2 fL Immature Granulocyte % (Auto) 1 % Neutrophils (%) (Auto) 93 H 42-75 % Lymphocytes (%) (Auto) 4 L 12-44 % Monocytes (%) (Auto) 2 0-12 % Eosinophils (%) (Auto) 0 0-10 % Basophils (%) (Auto) 0 0-10 % Neutrophils # (Auto) 9.0 H 1.8-7.8 10^3/uL Lymphocytes # (Auto) 0.4 L 1.0-4.0 10^3/uL Monocytes # (Auto) 0.2 0.0-1.0 10^3/uL Eosinophils # (Auto) 0.0 0.0-0.3 10^3/uL Basophils # (Auto) 0.0 0.0-0.1 10^3/uL Immature Granulocyte # (Auto) 0.1 0.0-0.1 10^3/uL Neutrophils % (Manual) 86 % Lymphocytes % (Manual) 2 % Monocytes % (Manual) 1 % Band Neutrophils 11 % Poikilocytosis SLIGHT Tear Drop Cells Crenated Cell SLIGHT Elliptocytes SLIGHT Rouleau MOD Prothrombin Time 27.0 H 12.2-14.7 SEC INR Comment 2.4 H 0.8-1.4 Activated Partial Thromboplast Time 50 H 24-35 SEC Sodium Level 131 L 135-145 MMOL/L Potassium Level 5.7 H 3.6-5.0 MMOL/L Chloride Level 97 L 98-107 MMOL/L Carbon Dioxide Level 15 L 21-32 MMOL/L Anion Gap 19 H 5-14 MMOL/L Blood Urea Nitrogen 72 H 7-18 MG/DL Creatinine 5.48 H 0.60-1.30 MG/DL Estimat Glomerular Filtration Rate 11 BUN/Creatinine Ratio 13 Glucose Level 77 70-105 MG/DL Lactic Acid Level 5.76 *H 2.24 *H 0.50-2.00 MMOL/L Calcium Level 8.6 8.5-10.1 MG/DL Corrected Calcium 9.2 8.5-10.1 MG/DL Total Bilirubin 0.5 0.1-1.0 MG/DL Aspartate Amino Transf (AST/SGOT) 15 5-34 U/L Alanine Aminotransferase (ALT/SGPT) 15 0-55 U/L Alkaline Phosphatase 121 40-136 U/L Total Protein 6.8 6.4-8.2 GM/DL Albumin 3.3 3.2-4.5 GM/DL Urine Color YELLOW Urine Clarity CLEAR Urine pH 8.0 5-9 Urine Specific [place] 1.015 L 1.016-1.022 Urine Protein 2+ H NEGATIVE Urine Glucose (UA) NEGATIVE NEGATIVE Urine Ketones NEGATIVE NEGATIVE Urine Nitrite NEGATIVE NEGATIVE Urine Bilirubin NEGATIVE NEGATIVE Urine Urobilinogen 0.2 < = 1.0 MG/DL Urine Leukocyte Esterase 3+ H NEGATIVE Urine RBC (Auto) 3+ H NEGATIVE Urine RBC >100 H /HPF Urine WBC TNTC H /HPF Urine Crystals NONE /LPF Urine Bacteria LARGE H /HPF Urine Casts NONE /LPF Urine Mucus LARGE H /LPF Urine Culture Indicated CULTURE PENDING Influenza Type A (RT-PCR) Not Detected Not Detecte Influenza Type B (RT-PCR) Not Detected Not Detecte SARS-CoV-2 RNA (RT-PCR) Not Detected Not Detecte My Orders Orders - MARK BEE MD Ed Iv/Invasive Line Start (08/13/22 10:25) Cbc With Automated Diff (08/13/22 10:25) Comprehensive Metabolic Panel (08/13/22 10:25) Blood Culture (08/13/22 10:25) Urinalysis (08/13/22 10:25) Urine Culture (08/13/22 10:25) Protime With Inr (08/13/22 10:25) Partial Thromboplastin Time (08/13/22 10:25) Ed Iv/Invasive Line Start (08/13/22 10:25) Ekg Tracing (08/13/22 10:25) Vital Signs Adult Sepsis Patie Q15M (08/13/22 10:25) O2 (08/13/22 10:25) Remove Rings In Anticipation O (08/13/22 10:25) Lactic Acid Analyzer (08/13/22 10:25) Influenza A And B By Pcr (08/13/22 10:25) Ns Iv 1000 Ml (Sodium Chloride 0.9%) (08/13/22 10:30) Piperacillin Sodium/Tazobactam (Zosyn Vi (08/13/22 10:30) Covid 19 Inhouse Test (08/13/22 10:25) Manual Differential (08/13/22 10:35) Ns Iv 1000 Ml (Sodium Chloride 0.9%) (08/13/22 11:19) Ct Chest/Abdomen/Pelvis Wo (08/13/22 10:25) Norepinephrine 8 Mg/250 Ml (Norepinephri (08/13/22 12:27) Vancomycin 1250mg/250ml Premix (Vancomyc (08/13/22 12:27) Fentanyl Inj (Sublimaze Injection) (08/13/22 13:15) Insulin (Regular) Human (Novolin R (Per (08/13/22 13:43) D50w (Emergency) Syringe (Dextrose 50% 5 (08/13/22 13:45) Medications Given in ED Current Medications Medications Dose Ordered Sig/Alistair Route Start Time Stop Time Status Last Admin Dose Admin Fentanyl Citrate 50 mcg ONCE ONCE IVP 08/13/22 13:15 08/13/22 13:16 DC 08/13/22 13:17 50 MCG Piperacillin Sod/ Tazobactam Sod 4.5 gm/Sodium Chloride 100 ml @ 200 mls/hr ONCE ONCE IV 08/13/22 10:30 08/13/22 10:59 DC 08/13/22 11:08 200 MLS/HR Vital Signs/I&O 08/13/22 08/13/22 08/13/22 10:12 12:48 13:17 Temp 38.0 38.0 Pulse 110 92 Resp 26 B/P (MAP) 105/50 (68) 91/53 Pulse Ox 98 O2 Delivery Nasal Cannula O2 Flow Rate 2.00 Progress Progress Note : Progress Note 67-year-old male with above history coming in due to abdominal pain and new oxygen requirement. The patient was mildly hypoxic on presentation, blood pressure little lower 100/50, mildly tachycardic. Blood pressure quickly went down to 80s over 40s. An IV was placed and he was given a bolus of IV fluids. The patient was febrile so septic work-up was obtained. His lactic acid was elevated at 5.76 concerning for severe sepsis. His kidney function significantly worse concerning for acute renal failure. He is making some urine out of his urostomy. Blood pressure continued to trend down so he got a second liter of fluid which is over 20 cc/kg. He received broad-spectrum antibiotics, initially Zosyn, added vancomycin when he was not improving. The patient later was started on norepinephrine when blood pressure continued to stay low. He does have some hyperkalemia with a potassium of 5.6. He is not showing any signs of hyperkalemia on his EKG. He was given 5 units of insulin IV as well as an amp of D50. CT chest, abdomen, pelvis obtained without contrast given his kidney function and concerning for likely obstruction versus ileus versus less likely ischemia. His lactic acid went down making ischemia less likely. Additionally, he is therapeutic on his warfarin today. He did receive fentanyl IV for pain control. I contacted [facility] to admit the patient to the intensive care unit for further evaluation management. Initial ECG Impression Date: Aug 13, 2022 Initial ECG Impression Time: : Initial ECG Rate: 96 Initial ECG Rhythm: Normal Sinus Comment Narrow QRS, borderline left axis deviation, no significant ST changes or T wave abnormalities Diagnostic Imaging Diagonstic Imaging: Xray, CT Comments NAME: MELANIE V[facility]SON [facility] REC#: [id number] PT STATUS: REG ER : 1955 PHYSICIAN: MARK BEE MD ADMIT DATE: 08/13/22/ER Draft Date of Exam:08/13/22 CT CHEST/ABDOMEN/PELVIS WO EXAMINATION: CT chest, abdomen and pelvis without intravenous contrast. TECHNIQUE: Multiple contiguous axial images were obtained through the chest, abdomen and pelvis without intravenous contrast. All CT scans use one or more of the following dose optimizing techniques: automated exposure control, MA and/or KvP adjustment based on patient size and exam type or iterative reconstruction. HISTORY: Chest and abdomen injury COMPARISON: 07/29/2022 FINDINGS: There is atelectasis in the right lower lobe. Previously seen pneumothorax has resolved. There is a tiny left pleural effusion. No suspicious nodules. There is no axillary or supraclavicular lymphadenopathy. There is no mediastinal lymphadenopathy. Heart size is normal. There are mild coronary artery calcifications. No pericardial effusion. Aorta is normal in caliber. The liver is normal without focal lesion. There is no biliary ductal dilation. There is sludge or excreted contrast in the gallbladder. Pancreas is normal. Spleen is normal. Adrenal glands are normal. Left kidney is absent. There is a right-sided percutaneous nephrostomy. There is severe right-sided hydroureteronephrosis. There has been a cystectomy and ileal conduit. There is a drainage catheter through the conduit. Small bowel loops in the left upper quadrant are dilated. The loops are difficult to follow in the absence of contrast as they are quite closely opposed to one another. There is a small amount of free fluid in the abdomen. No free air. No abdominal or pelvic lymphadenopathy. Aorta is normal in caliber without aneurysm. There are no suspicious osseus lesions. There is a comminuted left clavicle fracture. There are left third through sixth rib fractures. IMPRESSION: 1. Tiny left pleural effusion. Previously seen pneumothorax is resolved. 2. Severe right-sided hydroureteronephrosis. There is a stent within an ileal conduit as well as the percutaneous nephrostomy. 3. Dilated small bowel loops in the left upper quadrant. Differential includes bowel ischemia, partial obstruction and ileus. 4. Comminuted left clavicle fracture and left third through sixth rib fractures. Dictated on workstation # [id number] Dict: 08/13/22 1154 Trans: 08/13/22 1214 [id number] Interpreted by: IWCHO HONG MD Electronically signed by: Critical Care Note Critical Care Start Time: 10:20 Stop Time: 14:32 Total Time (minutes) 74 Progress Patient at significant risk for hemodynamic compromise and respiratory compromise. He was frequently reassessed, multiple conversations with other providers and family. All time billed for critical care separate from procedures Departure Impression Primary Impression: Septic shock Additional Impression: Respiratory failure Qualified Codes: J96.01 - Acute respiratory failure with hypoxia Disposition: 02 XFER T-[facility] Condition: Stable Transfer Transfer Reason: Exceeds level of care (needs nephrology ) Time Spoke to Accepting Phy: 13:41 Transfer Progress Notes Contacted [facility] at 12:28 for transfer. They called back at 13:41 and accepted for transfer to Dr. Castaneda. They called back at 13:59 to give a bed assignment Transfer Facility: [facility] Method of Transfer: Air Departure-Patient Inst. Referrals: NO,LOCAL PHYSICIAN (PCP/Family) Primary Care Physician MARK BEE MD Aug 13, 2022 10:22
[2022-08-13] MEDS ORDERED: PIPERACILLIN SODIUM/TAZOBACTAM 4.5 GM in NS (IVPB) 100 ML IV ONE (10:30)
[2022-08-13] MEDS ORDERED: NS IV 1000 ML 1,000 ML IV SCH (10:30)
[2022-08-13 10:47] LABS: BASOPHILS % (AUTO) 0 % (0-10); EOSINOPHILS % (AUTO) 0 % (0-10); HEMATOCRIT 30 % (40-54); HEMOGLOBIN 9.8 g/dL (13.3-17.7); LYMPHOCYTES # (AUTO) 0.4 10^3/uL (1.0-4.0); LYMPHOCYTES % (AUTO) 4 % (12-44); MEAN CORPUSCULAR HEMOGLOBIN 31 pg (25-34); MEAN CORPUSCULAR HGB CONC 33 g/dL (32-36); MEAN CORPUSCULAR VOLUME 92 fL (80-99); MEAN PLATELET VOLUME 9.2 fL (9.0-12.2); MONOCYTES # (AUTO) 0.2 10^3/uL (0.0-1.0); MONOCYTES % (AUTO) 2 % (0-12); NEUTROPHILS % (AUTO) 93 % (42-75); PLATELET COUNT 316 10^3/uL (130-400); WHITE BLOOD COUNT 9.6 10^3/uL (4.3-11.0)
[2022-08-13 10:57] LABS: ALBUMIN 3.3 GM/DL (3.2-4.5); POTASSIUM 5.7 MMOL/L (3.6-5.0)
[2022-08-13 10:58] LABS: CALCIUM 8.6 MG/DL (8.5-10.1)
[2022-08-13 10:59] LABS: TOTAL PROTEIN 6.8 GM/DL (6.4-8.2)
[2022-08-13 11:01] LABS: BILIRUBIN,TOTAL 0.5 MG/DL (0.1-1.0)
[2022-08-13 11:03] LABS: CREATININE SERUM 5.48 MG/DL (0.60-1.30)
[2022-08-13 11:06] LABS: INR 2.4 (0.8-1.4)
[2022-08-13 11:19] LABS: BAND NEUTROPHILS 11 %; ELLIPT/OVALOCYTES SLIGHT; LYMPHOCYTES % (MANUAL) 2 %; MONOCYTES % (MANUAL) 1 %; NEUTROPHILS % (MANUAL) 86 %; POIKILOCYTOSIS SLIGHT
[2022-08-13] MEDS ORDERED: NS IV 1000 ML 1,000 ML IV STA (11:19)
[2022-08-13 11:20] LABS: CRENATED RBC SLIGHT; ROULEAUX MOD
[2022-08-13 11:24] LABS: BILIRUBIN,URINE NEGATIVE (NEGATIVE); CLARITY,URINE CLEAR; COLOR,URINE YELLOW; GLUCOSE, URINE (UA) NEGATIVE (NEGATIVE); KETONES,URINE NEGATIVE (NEGATIVE); LEUKOCYTE ESTERASE ,URINE 3+ (NEGATIVE); NITRITE,URINE NEGATIVE (NEGATIVE); PROTEIN,URINE 2+ (NEGATIVE)
[2022-08-13 11:34] LABS: BACTERIA,URINE LARGE /HPF; RBC,URINE >100 /HPF; WBC,URINE TNTC /HPF
--- NOTE | 2022-08-13 12:15 | Diagnostic Imaging Report ---
EXAMINATION: CT chest, abdomen and pelvis without intravenous contrast. TECHNIQUE: Multiple contiguous axial images were obtained through the chest, abdomen and pelvis without intravenous contrast. All CT scans use one or more of the following dose optimizing techniques: automated exposure control, MA and/or KvP adjustment based on patient size and exam type or iterative reconstruction. HISTORY: Chest and abdomen injury COMPARISON: 07/29/2022 FINDINGS: There is atelectasis in the right lower lobe. Previously seen pneumothorax has resolved. There is a tiny left pleural effusion. No suspicious nodules. There is no axillary or supraclavicular lymphadenopathy. There is no mediastinal lymphadenopathy. Heart size is normal. There are mild coronary artery calcifications. No pericardial effusion. Aorta is normal in caliber. The liver is normal without focal lesion. There is no biliary ductal dilation. There is sludge or excreted contrast in the gallbladder. Pancreas is normal. Spleen is normal. Adrenal glands are normal. Left kidney is absent. There is a right-sided percutaneous nephrostomy. There is severe right-sided hydroureteronephrosis. There has been a cystectomy and ileal conduit. There is a drainage catheter through the conduit. Small bowel loops in the left upper quadrant are dilated. The loops are difficult to follow in the absence of contrast as they are quite closely opposed to one another. There is a small amount of free fluid in the abdomen. No free air. No abdominal or pelvic lymphadenopathy. Aorta is normal in caliber without aneurysm. There are no suspicious osseus lesions. There is a comminuted left clavicle fracture. There are left third through sixth rib fractures. IMPRESSION: 1. Tiny left pleural effusion. Previously seen pneumothorax is resolved. 2. Severe right-sided hydroureteronephrosis. There is a stent within an ileal conduit as well as the percutaneous nephrostomy. 3. Dilated small bowel loops in the left upper quadrant. Differential includes bowel ischemia, partial obstruction and ileus. 4. Comminuted left clavicle fracture and left third through sixth rib fractures. Dictated by: Dictated on workstation # [id number]
[2022-08-13] MEDS ORDERED: VANCOMYCIN 1250MG/250ML PREMIX 250 ML IV STA (12:27)
[2022-08-13] MEDS ORDERED: NOREPINEPHRINE 8 MG/250 ML 250 ML IV STA (12:27)
[2022-08-13] MEDS ORDERED: fentaNYL INJ 100 MCG/2 ML AMP IVP ONE (13:15)
[2022-08-13] MEDS ORDERED: inSUlin (REGULAR) HUMAN 1 UNIT/0.01 ML (CHARGE PER UNIT) IV STA (13:43)
[2022-08-13] MEDS ORDERED: DEXTROSE 50% 50 ML (IMS) SYR IV ONE (13:45)
[2022-08-13 14:49] VITALS: BP 96/52
== END 2022-08-13 14:49 | disposition short-term general hospital (02) ==
LOC: EDUNIT# 10:06 → ER 10:08
DX: A41.9 Sepsis, unspecified organism (principal); R65.21 Severe sepsis with septic shock; J96.91 Respiratory failure, unspecified with hypoxia; E87.5 Hyperkalemia; F17.210 Nicotine dependence, cigarettes, uncomplicated; Z86.16 Personal history of COVID-19; Z90.5 Acquired absence of kidney; Z20.822 Contact with and (suspected) exposure to COVID-19
CPT/HCPCS: 36415; 71250; 74176; 80053; 81000; 83605; 85007; 85027; 85610; 85730; 87040; 87077; 87088; 87186; 87636; 93005

== ENCOUNTER 2023-03-10 16:14 | Inpatient (IN) | payer OTHER, MEDICARE, MEDICAID ==
[~2023-03-10] VITALS: Ht 177.8 cm; Wt 66.9 kg
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
[2023-03-10] MEDS: NS IV 1000 ML 1,000 ML IV SCH (16:49)
[2023-03-10] MEDS ORDERED: LIDOCAINE 1% INJ 20 ML VIAL ONE (17:05)
[2023-03-10 17:11] LABS: BASOPHILS % (AUTO) 0 % (0-10); EOSINOPHILS % (AUTO) 0 % (0-10); HEMATOCRIT 34 % (40-54); HEMOGLOBIN 10.8 g/dL (13.3-17.7); LYMPHOCYTES # (AUTO) 0.8 10^3/uL (1.0-4.0); LYMPHOCYTES % (AUTO) 8 % (12-44); MEAN CORPUSCULAR HEMOGLOBIN 30 pg (25-34); MEAN CORPUSCULAR HGB CONC 32 g/dL (32-36); MEAN CORPUSCULAR VOLUME 93 fL (80-99); MONOCYTES # (AUTO) 0.9 10^3/uL (0.0-1.0); MONOCYTES % (AUTO) 10 % (0-12); NEUTROPHILS % (AUTO) 81 % (42-75); PLATELET COUNT 270 10^3/uL (130-400); WHITE BLOOD COUNT 9.9 10^3/uL (4.3-11.0)
[2023-03-10 17:19] LABS: BILIRUBIN,URINE NEGATIVE (NEGATIVE); CLARITY,URINE CLEAR; COLOR,URINE YELLOW; GLUCOSE, URINE (UA) NEGATIVE (NEGATIVE); KETONES,URINE NEGATIVE (NEGATIVE); LEUKOCYTE ESTERASE ,URINE 3+ (NEGATIVE); NITRITE,URINE POSITIVE (NEGATIVE); PROTEIN,URINE 2+ (NEGATIVE); WBC,URINE 50-100 /HPF
[2023-03-10 17:20] LABS: BACTERIA,URINE LARGE /HPF; SQUAMOUS EPITHELIAL CELL,UR RARE /HPF
[2023-03-10 17:23] LABS: ALBUMIN 3.9 GM/DL (3.2-4.5); PROTHROMBIN TIME PATIENT 13.4 SEC (12.2-14.7)
[2023-03-10 17:24] LABS: AMMONIA 19 UMOL/L (11-32); CHLORIDE 105 MMOL/L (98-107); POTASSIUM 4.7 MMOL/L (3.6-5.0); SODIUM 134 MMOL/L (135-145)
[2023-03-10 17:25] LABS: CALCIUM 8.3 MG/DL (8.5-10.1)
[2023-03-10 17:26] LABS: GLUCOSE 119 MG/DL (70-105); TOTAL PROTEIN 7.6 GM/DL (6.4-8.2)
[2023-03-10 17:27] LABS: CARBON DIOXIDE 18 MMOL/L (21-32)
[2023-03-10 17:28] LABS: BILIRUBIN,TOTAL 0.4 MG/DL (0.1-1.0)
[2023-03-10 17:29] LABS: ALKALINE PHOSPHATASE 150 U/L (40-136)
[2023-03-10 17:30] LABS: CREATININE SERUM 2.93 MG/DL (0.60-1.30); GFR ESTIMATED 23
[2023-03-10 17:31] LABS: BUN/CREATININE RATIO 16
[2023-03-10 17:33] LABS: ALANINE AMINOTRANSFERASE 24 U/L (0-55)
[2023-03-10] MEDS ORDERED: cefTRIAXone IV/IM 1,000 MG in NS (IVPB) 50 ML 50 ML IV ONE (17:45)
[2023-03-10 17:53] LABS: FREE T4 (FREE THYROXINE) 1.12 NG/DL (0.70-1.48)
--- NOTE | 2023-03-10 18:03 | Diagnostic Imaging Report ---
EXAMINATION: Left tibia and fibula 2 views HISTORY: Leg injury COMPARISON: None available. FINDINGS: Alignment is normal. No fracture is seen. Joint spaces are normal. IMPRESSION: 1. No fracture. Dictated by: Dictated on workstation # [email or web address]
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
--- NOTE | 2023-03-10 18:49 | Diagnostic Imaging Report ---
EXAMINATION: CT head without contrast. TECHNIQUE: Multiple contiguous axial images were obtained through the brain without the use of intravenous contrast. All CT scans use one or more of the following dose optimizing techniques: automated exposure control, MA and/or KvP adjustment based on patient size and exam type or iterative reconstruction. HISTORY: Altered mental status COMPARISON: 07/29/2022 FINDINGS: The previously seen intracranial hemorrhage has resolved. No acute hemorrhage is seen on today's exam. No mass effect or midline shift. The ventricles are normal in size and configuration. Basilar cisterns are patent. There are no intra- or extra-axial fluid collections. The orbits are normal. Paranasal sinuses are normal. There has been a right-sided mastoidectomy. No soft tissue abnormality is seen. No osseus lesions or fractures are seen. IMPRESSION: 1. No acute intracranial abnormality. Previously seen intracranial hemorrhage has resolved. Dictated by: Dictated on workstation # [email or web address]
[2023-03-10 20:22] VITALS: BP 148/71
[2023-03-10 20:25] VITALS: BP 148/71
[2023-03-10] MEDS ORDERED: ONDANSETRON INJECTION 4 MG/2 ML (SDV) IV PRN (21:45)
[2023-03-10 22:58] VITALS: BP 130/60
[2023-03-11] MEDS: D5 1/2 NS 1,000 ML IV 1,000 ML IV SCH ×2 (02:15→08:08)
[2023-03-11] MEDS: NS IV 1000 ML 1,000 ML IV SCH (03:25)
[2023-03-11 03:32] VITALS: BP 134/62
[2023-03-11 05:53] LABS: CALCIUM 8.1 MG/DL (8.5-10.1)
[2023-03-11 05:57] LABS: CREATININE SERUM 2.68 MG/DL (0.60-1.30)
[2023-03-11] MEDS ORDERED: FLU HIGH DOSE (65+ YOA) 240 MCG/0.7 ML 2023-24 (FLUZONE) IM ONE (06:45)
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
[2023-03-11 07:13] LABS: BASOPHILS % (AUTO) 0 % (0-10); EOSINOPHILS # (AUTO) 0.2 10^3/uL (0.0-0.3); EOSINOPHILS % (AUTO) 3 % (0-10); HEMATOCRIT 31 % (40-54); HEMOGLOBIN 9.9 g/dL (13.3-17.7); LYMPHOCYTES # (AUTO) 1.4 10^3/uL (1.0-4.0); LYMPHOCYTES % (AUTO) 20 % (12-44); MEAN CORPUSCULAR HEMOGLOBIN 30 pg (25-34); MEAN CORPUSCULAR HGB CONC 32 g/dL (32-36); MEAN CORPUSCULAR VOLUME 93 fL (80-99); MEAN PLATELET VOLUME 9.6 fL (9.0-12.2); MONOCYTES % (AUTO) 15 % (0-12); NEUTROPHILS # (AUTO) 4.3 10^3/uL (1.8-7.8); NEUTROPHILS % (AUTO) 62 % (42-75); PLATELET COUNT 247 10^3/uL (130-400)
[2023-03-11 07:16] VITALS: BP 128/66
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
[2023-03-11] MEDS ORDERED: CEFEPIME 1,000 MG/NS 50 ML IVPB IV SCH ×2 (11:00)
[2023-03-11 11:54] VITALS: BP 147/65
[2023-03-11] MEDS: ACETAMINOPHEN 325 MG TABLET PO PRN (12:30)
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
--- NOTE | 2023-03-11 14:51 | Occ Therapy Progress Note ---
Therapy Progress Note OT order received, OT attempted evaluation, ECHO being performed, OT will attempt next available opportunity ROBINSON DICKENS OT Mar 11, 2023 14:51
[2023-03-11 15:21] VITALS: BP 127/59
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
[2023-03-11 19:21] VITALS: BP 126/59
[2023-03-11] MEDS ORDERED: cefTRIAXone 1 GM/NS 50 ML IVPB IV SCH ×2 (20:00)
[2023-03-11] MEDS: CEFEPIME 1,000 MG/NS 50 ML IVPB IV SCH ×2 (23:23)
[2023-03-11 23:50] VITALS: BP 121/60
[2023-03-12 04:15] VITALS: BP 135/63
[2023-03-12 05:48] LABS: BASOPHILS % (AUTO) 1 % (0-10); EOSINOPHILS # (AUTO) 0.3 10^3/uL (0.0-0.3); EOSINOPHILS % (AUTO) 5 % (0-10); HEMATOCRIT 31 % (40-54); HEMOGLOBIN 9.9 g/dL (13.3-17.7); LYMPHOCYTES # (AUTO) 1.6 10^3/uL (1.0-4.0); LYMPHOCYTES % (AUTO) 25 % (12-44); MEAN CORPUSCULAR HEMOGLOBIN 30 pg (25-34); MEAN CORPUSCULAR HGB CONC 32 g/dL (32-36); MEAN CORPUSCULAR VOLUME 92 fL (80-99); MEAN PLATELET VOLUME 9.2 fL (9.0-12.2); MONOCYTES % (AUTO) 15 % (0-12); NEUTROPHILS # (AUTO) 3.6 10^3/uL (1.8-7.8); NEUTROPHILS % (AUTO) 55 % (42-75); PLATELET COUNT 243 10^3/uL (130-400); WHITE BLOOD COUNT 6.5 10^3/uL (4.3-11.0)
[2023-03-12 05:55] LABS: ALBUMIN 3.5 GM/DL (3.2-4.5); POTASSIUM 4.2 MMOL/L (3.6-5.0)
[2023-03-12 05:56] LABS: CALCIUM 8.3 MG/DL (8.5-10.1)
[2023-03-12 05:58] LABS: TOTAL PROTEIN 6.9 GM/DL (6.4-8.2)
[2023-03-12 05:59] LABS: BILIRUBIN,TOTAL 0.3 MG/DL (0.1-1.0)
[2023-03-12 06:01] LABS: CREATININE SERUM 2.37 MG/DL (0.60-1.30)
[2023-03-12 07:11] VITALS: BP 137/68
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
[2023-03-12 11:17] VITALS: BP 131/78
[2023-03-12] MEDS: CEFEPIME 1,000 MG/NS 50 ML IVPB IV SCH ×4 (11:31→23:08)
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
[2023-03-12] MEDS ORDERED: ACET-2267 PO (16:05)
[2023-03-12] MEDS ORDERED: MIRT-68 PO (16:05)
[2023-03-12] MEDS ORDERED: LEVO25TA5 PO (16:05)
[2023-03-12] MEDS ORDERED: FURO40TA4 PO (16:05)
[2023-03-12] MEDS ORDERED: ATOR80TA76 PO (16:05)
[2023-03-12] MEDS ORDERED: AMIO200T65 PO (16:05)
[2023-03-12] MEDS ORDERED: BUPR150T24 PO (16:05)
[2023-03-12] MEDS ORDERED: OXYC5TAB PO (16:05)
[2023-03-12] MEDS ORDERED: GABA-486 PO (16:05)
[2023-03-12] MEDS ORDERED: IPRA3AMP31 NEB (16:05)
[2023-03-12] MEDS ORDERED: MULT-1136 PO (16:08)
[2023-03-12] MEDS ORDERED: ASCO500T17 PO (16:08)
[2023-03-12] MEDS ORDERED: SENN-274 PO (16:08)
[2023-03-12] MEDS ORDERED: MAGN400T39 PO (16:08)
[2023-03-12] MEDS ORDERED: FERR324T4 PO (16:08)
[2023-03-12] MEDS ORDERED: POLY17PO6 PO (16:08)
[2023-03-12 16:34] VITALS: BP 138/70
[2023-03-12] MEDS ORDERED: NON-FORMULARY MEDICATION 1 EA EA (Ferrous Sulfate 324 MG) PO SCH (16:45)
[2023-03-12] MEDS ORDERED: oxyCODONE IMMEDIATE RELEASE 5 MG TABLET PO PRN (16:45)
[2023-03-12] MEDS: MAGNESIUM OXIDE 400 MG TABLET PO SCH (17:17)
[2023-03-12] MEDS: FUROSEMIDE 40 MG TABLET PO SCH (17:17)
[2023-03-12] MEDS ORDERED: RT-Ipratropium/Albuterol NEB 3 ML VIAL IH SCH (19:00)
[2023-03-12] MEDS ORDERED: RT-Ipratropium/Albuterol NEB 3 ML VIAL IH PRN (19:00)
[2023-03-12 20:16] VITALS: BP 136/62
[2023-03-12] MEDS: GABAPENTIN 100 MG CAPSULE PO SCH (20:31)
[2023-03-12] MEDS ORDERED: MIRTAZAPINE 15 MG TABLET PO SCH (21:00)
[2023-03-12] MEDS ORDERED: SENNA W/DOCUSATE TABLET PO SCH (21:00)
[2023-03-12] MEDS ORDERED: NON-FORMULARY MEDICATION 1 EA EA (Mirtazapine 15 MG) PO SCH (21:00)
[2023-03-12] MEDS ORDERED: NON-FORMULARY MEDICATION 1 EA EA (Magnesium Oxide (Magnesium) 400 MG) PO SCH (21:00)
[2023-03-12] MEDS: ACETAMINOPHEN 325 MG TABLET PO PRN (22:02)
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
[2023-03-12 23:08] VITALS: BP 145/71
[2023-03-13 03:25] VITALS: BP 125/62
[2023-03-13] MEDS: FUROSEMIDE 40 MG TABLET PO SCH (05:38)
[2023-03-13 05:54] LABS: BASOPHILS % (AUTO) 1 % (0-10); EOSINOPHILS # (AUTO) 0.4 10^3/uL (0.0-0.3); EOSINOPHILS % (AUTO) 6 % (0-10); HEMATOCRIT 33 % (40-54); HEMOGLOBIN 10.4 g/dL (13.3-17.7); LYMPHOCYTES # (AUTO) 1.5 10^3/uL (1.0-4.0); LYMPHOCYTES % (AUTO) 25 % (12-44); MEAN CORPUSCULAR HEMOGLOBIN 30 pg (25-34); MEAN CORPUSCULAR HGB CONC 32 g/dL (32-36); MEAN CORPUSCULAR VOLUME 93 fL (80-99); MEAN PLATELET VOLUME 9.2 fL (9.0-12.2); MONOCYTES # (AUTO) 0.9 10^3/uL (0.0-1.0); MONOCYTES % (AUTO) 15 % (0-12); NEUTROPHILS # (AUTO) 3.2 10^3/uL (1.8-7.8); NEUTROPHILS % (AUTO) 53 % (42-75); PLATELET COUNT 239 10^3/uL (130-400); WHITE BLOOD COUNT 6.1 10^3/uL (4.3-11.0)
[2023-03-13 06:02] LABS: ALBUMIN 3.5 GM/DL (3.2-4.5)
[2023-03-13 06:03] LABS: POTASSIUM 4.1 MMOL/L (3.6-5.0)
[2023-03-13 06:04] LABS: CALCIUM 8.5 MG/DL (8.5-10.1)
[2023-03-13 06:05] LABS: TOTAL PROTEIN 6.9 GM/DL (6.4-8.2)
[2023-03-13 06:07] LABS: BILIRUBIN,TOTAL 0.3 MG/DL (0.1-1.0)
[2023-03-13 06:09] LABS: CREATININE SERUM 2.45 MG/DL (0.60-1.30)
[2023-03-13] MEDS ORDERED: LEVOTHYROXINE 25 MCG TABLET PO SCH (06:30)
[2023-03-13] MEDS ORDERED: THERAPEUTIC MULTIVITAMIN W/MINERALS TABLET PO SCH (07:00)
[2023-03-13 07:16] VITALS: BP 134/74
[2023-03-13] MEDS: GABAPENTIN 100 MG CAPSULE PO SCH ×2 (08:35→12:13)
[2023-03-13] MEDS: MAGNESIUM OXIDE 400 MG TABLET PO SCH (08:35)
[2023-03-13] MEDS ORDERED: FERROUS SULFATE 325 MG (IRON) TABLET PO SCH (09:00)
[2023-03-13] MEDS ORDERED: NON-FORMULARY MEDICATION 1 EA EA (Bupropion HCl (Bupropion Xl) 150 MG) PO SCH (09:00)
[2023-03-13] MEDS ORDERED: buPROPion SR 150 MG TABLET PO SCH (09:00)
[2023-03-13] MEDS ORDERED: NON-FORMULARY MEDICATION 1 EA EA (Multivitamin 1 EACH) PO SCH (09:00)
[2023-03-13] MEDS ORDERED: AMIODARONE 200 MG TABLET PO SCH (09:00)
[2023-03-13 11:22] VITALS: BP 137/70
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
[2023-03-13] MEDS ORDERED: CEFP100T2 PO (11:51)
[2023-03-13] MEDS: CEFEPIME 1,000 MG/NS 50 ML IVPB IV SCH ×2 (12:13)
[2023-03-13 14:00] VITALS: BP 137/70
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
== END 2023-03-13 14:00 | disposition home health service (06) | DRG 987 ==
LOC: EDUNIT# 16:14 → ER 16:16 → 4TH 19:50 → OBSVTOIN 03-11 11:13
PROVIDERS: ADMIT Family Medicine; ATTEND Family Medicine
PROC: 0JQP0ZZ Repair Left Lower Leg Subcutaneous Tissue and Fascia, Open Approach (ICD-10-PCS; principal; 2023-03-10)
DX: R55 Syncope and collapse (principal); J96.00 Acute respiratory failure, unspecified whether with hypoxia or hypercapnia; N39.0 Urinary tract infection, site not specified; N18.4 Chronic kidney disease, stage 4 (severe); N99.521 Infection of incontinent external stoma of urinary tract; I12.9 Hypertensive chronic kidney disease with stage 1 through stage 4 chronic kidney disease, or unspecified chronic kidney disease; E11.22 Type 2 diabetes mellitus with diabetic chronic kidney disease; S81.812A Laceration without foreign body, left lower leg, initial encounter; I48.0 Paroxysmal atrial fibrillation; F17.210 Nicotine dependence, cigarettes, uncomplicated; E78.00 Pure hypercholesterolemia, unspecified; S61.217A Laceration without foreign body of left little finger without damage to nail, initial encounter; I34.0 Nonrheumatic mitral (valve) insufficiency; R41.0 Disorientation, unspecified; F03.90 Unspecified dementia, unspecified severity, without behavioral disturbance, psychotic disturbance, mood disturbance, and anxiety; Z93.3 Colostomy status; Z91.81 History of falling; Z93.6 Other artificial openings of urinary tract status; Z86.73 Personal history of transient ischemic attack (TIA), and cerebral infarction without residual deficits; Z85.51 Personal history of malignant neoplasm of bladder; Z85.528 Personal history of other malignant neoplasm of kidney; Z85.038 Personal history of other malignant neoplasm of large intestine; V48.5XXA Car driver injured in noncollision transport accident in traffic accident, initial encounter
CPT/HCPCS: 12005; 36415; 70450; 71045; 73590; 80048; 80053; 81000; 82140; 82607; 82728; 82947; 83540; 83550; 83605; 84439; 84443; 84481; 84484; 85025; 85610; 85730; 87040; 87077; 87088; 87186; 93005; 93041; 93306; 94010; 94760; 96361; 96374; G0378